=== PATIENT | female | born 1985 | race Caucasian/White ===

== ENCOUNTER 2022-12-29 05:56 | Emergency (ER) | payer OTHER, SELFPAY ==
--- NOTE | 2022-12-29 | ECG_ITS ---
Test Reason : chest pain Blood Pressure : / mmHG Vent. Rate : 084 BPM Atrial Rate : 084 BPM P-R Int : 152 ms QRS Dur : 088 ms QT Int : 384 ms P-R-T Axes : 063 029 026 degrees QTc Int : 453 ms Normal sinus rhythm Nonspecific T wave abnormality Borderline ECG No previous ECGs available Referred By: Generic ED Physician Electronically Signed By:JUANCHO OROZCO MD
[2022-12-29 05:57] VITALS: BP 128/70; PULSE 83; RESP 18; TEMP 36.3; O2SAT 98; BMI 26.6
[2022-12-29 06:23] LABS: MANUAL DIFF FLAG NO
[2022-12-29 06:24] LABS: Basophils Absolute Auto 0.1 X10*3/uL (0.0-0.2); Basophils Percent Auto 0.5 % (0-2); Eosinophils Absolute Auto 0.2 X10*3/uL (0.0-0.4); Eosinophils Percent Auto 1.8 % (0-4); Hematocrit 37.8 % (37.0-47.0); Hemoglobin 12.2 g/dl (12.0-16.0); Imm Gran Abs Auto 0.03 X10*3/uL (0.00-0.03); Imm Gran Pct Auto 0.3 % (0.0-0.4); Lymphocytes Absolute Auto 2.5 X10*3/uL (1.2-4.9); Lymphocytes Percent Auto 25.6 % (20-40); Mean Corpuscular HGB Conc 32.3 g/dl (31.0-35.0); Mean Corpuscular Volume 80.4 fL (80.0-98.0); Mean Platelet Volume 9.2 fL (9.4-12.3); Monocytes Absolute Auto 0.5 X10*3/uL (0.1-1.2); Monocytes Percent Auto 5.4 % (2-11); Neutrophils Absolute Auto 6.4 x10*3/uL (2.0-8.3); Neutrophils Percent Auto 66.4 % (45-73); Platelet Count 349 X10*3/uL (160-400); Red Cell Distribution Width 12.6 % (11.0-16.0); White Blood Count 9.6 X10*3/uL (4.8-10.8)
[2022-12-29 06:39] LABS: Alanine Aminotransferase 28 U/L (0-31); Albumin Level 4.5 g/dL (3.5-5.0); Alkaline Phosphatase 79 U/L (39-117); Anion Gap 14 (12-20); Aspartate Amino Transferase 21 U/L (5-31); Bilirubin Total 0.2 mg/dL (0.0-1.0); Blood Urea Nitrogen 8 mg/dL (9-16); Calcium 9.1 mg/dL (8.4-10.2); Carbon Dioxide 24 mmol/L (22-29); Chloride 105 mmol/L (96-108); Creatinine Clr Calc Pharmacy 99.7; Estimated Glomerular Filt Rate > 60; Glucose Random 104 mg/dL (60-115); Potassium 3.9 mmol/L (3.3-5.1); Sodium 139 mmol/L (135-145); Total Protein 7.4 g/dL (6.5-8.0)
--- NOTE | 2022-12-29 08:56 | ED_ITS ---
HPI - General Adult General Chief complaint: Dizziness Stated complaint: possible chemical exposure at work Time Seen by Provider: 12/29/22 08:56 Source: patient Mode of arrival: ambulatory Limitations: no limitations History of Present Illness HPI narrative: 37 year old female with no significant pmhx, presents to the ED with complaint of headache, dizziness, nausea w/o vomiting, and chest pain after smelling gasoline while at work [employer]. 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 Was not wearing PPE. She was in this area for approximately 20 minutes and began feeling dizzy, developed a TENA, became nauseous and started to have chest pain worse with deep inspiration. She was escorted out of the building by management. There were no other employees that had these symptoms. She only endorses mild chest pain with deep breathing and nausea at present. All other symptoms have resolved. Denies fever, chills, vision changes, SOB, vomiting, abdominal pain, diarrhea, constipation. Related Data Previous Rx's Medication Instructions Recorded ondansetron 4 mg disintegrating 4 mg PO DAILY PRN nausea and 12/29/22 tablet vomiting 5 days #10 tabs Allergies Allergy/AdvReac Type Severity Reaction Status Date / Time No Known Allergies Allergy Verified 12/29/22 06:10 Review of Systems 2 Review of Systems: Constitutional: No fever, chills, fatigue, night sweats, weight changes ENT/Mouth: No ear pain, hearing loss, nasal congestion, sinus pain, rhinorrhea, sore throat Eyes: No eye pain, swelling, redness, vision changes, discharge Cardio: + chest pain, No palpitations, LAGOS, orthopnea, peripheral edema Pulm: No SOB, cough, sputum, wheezing, dyspnea, hemoptysis GI: + nausea, No vomiting, hematemesis, abdominal pain, diarrhea, constipation, hematochezia, melena : No irregular bleeding, dysuria, frequency, urgency, hesitancy, hematuria, flank pain, urinary flow changes, urinary incontinence or retention MSK: No back pain, neck pain, joint pain, myalgias Skin: No lesions, rashes Neuro: No weakness, numbness, paresthesias, LOC, dizziness, headache All other systems reviewed and are negative. [facility] Past Medical History Attestation statement: The following information was validated with the patient. Source: old records reviewed and nursing notes reviewed Social History Social History Alcohol intake: never Use of substances other than those prescribed or required for medical reasons: No Advance Directives: No Advance Directives Information Provided: No Physical Exam ED Vital Signs: Vital Signs - 24 hr 12/29/22 05:57 12/29/22 10:46 Temperature 97.4 F 98 F Pulse Rate 83 78 Respiratory Rate 18 18 Blood Pressure 128/70 Pulse Oximetry 98 98 Oxygen Delivery Method Room Air Room Air BMI result Body Mass Index 26.6 Vital signs are stable. Const General: cooperative, healthy appearing, comfortable, no acute distress, alert and awake Orientation/consciousness: patient oriented x3 Limitations: no limitations HENMT Head: Yes normal to inspection, Yes normocephalic and Yes atraumatic Ears: hearing grossly normal bilaterally General nose exam: Normal external nose present Face and sinus: Yes normal facial exam Mouth: Normal oral and palatal mucosa present and moist mucous membranes Throat: Yes posterior oropharynx normal, Yes tonsils normal and Yes uvula midline Eyes General: appearance normal, both eyes and all related structures Conjunctivae: conjunctivae normal Sclerae: sclerae normal Pupils: Equal, round and reactive pupils present EOM: EOMs intact bilaterally Neck Neck: Yes normal visual inspection, Yes no lymphadenopathy and Yes no meningeal signs Chest Chest palpation & inspection: normal inspection of the chest, normal palpation of entire chest wall, no crepitus and no tenderness Resp Effort & Inspection: normal respiratory effort, able to speak in complete sentences, no use of accessory muscles and symmetric chest movement Auscultation: clear to auscultation bilaterally, no crackles, no rales, no rhonchi and no wheezes Cardio Jugular venous distension: no JVD Rate: regular rate Rhythm: regular rhythm Peripheral pulses: radial pulses present, posterior tibial pulses present and dorsalis pedis present GI Inspection: Yes normal to inspection Palpation (GI): Soft to palpation, nontender, no guarding and No Rebound tenderness present Skin General skin exam: no rashes or lesions noted Neuro Other: Normal [id number]-op-fxyc, orke-[id number]-bzgh, rapid movements of upper extremities. General: patient oriented x3, gait normal, moves all extremities and no meningeal signs Cranial nerves: Yes CN's II-XII intact bilaterally and Yes Equal, round and reactive pupils present Extrem General: Yes normal to inspection, Yes full ROM and Yes no clubbing, cyanosis or edema Course Course Course Narrative: 958-- CBC without leukocytosis or anemia. Chemistry without acute electrolyte abnormality requiring intervention. Carboxyhemoglobin wnl. Venous blood gas only notable for mildly elevated bicarb to 29, otherwise WNL. EKG showing normal sinus rhythm with a rate of 84 beats per minute, QT 384, QTC 453, no acute ischemic changes. > Patient's workup is within normal limits. As chest pain is worse with inspiration, symptoms are consistent with pleuritis secondary to possible inhalation of carbon monoxide. Patient advised to alternate ibuprofen and Tylenol for chest discomfort/pain and to help with inflammation. Will send Zofran to patient's pharmacy to help with nausea. She is currently tolerating crackers in ED. Discussed strict return precautions. All questions answered at this time. Patient agreeable with disposition and stable for discharge. Medications Administered Discontinued Medications Generic Name Dose Route Start Last Admin Trade Name Freq PRN Reason Stop Dose Admin Ondansetron HCl 4 mg 12/29/22 09:06 12/29/22 09:51 Ondansetron Odt 4 Mg Tab.Rapdis TRANSLINGU 12/29/22 09:07 4 mg ONCE ONE Administration Medical Decision Making Medical Decision Making [facility] Narrative: 37 year old female with no significant pmhx, presents to the ED with complaint of headache, dizziness, nausea without vomiting, and chest pain after smelling gasoline while at work [employer]. Patient is nontoxic appearing and in NAD. RRR. Lungs are CTA bilaterally. No chest wall tenderness to palpation. No skin color changes. [place], moist oral mucous membranes. Exam nonfocal. Cerebellum intact. Clinical concern for carbon monoxide poisoning, methemoglobinemia, environmental exposure. Lower suspicion for viral syndrome, URI. Concern for pleuritis vs msk sprain/strain. Unlikely arrhythmia, ACS, PE. Presentation not consistent with CVA/TIA. Unlikely cerebellar stroke. Plan at this time is basic labs, EKG, re- evaluation. Differential Diagnosis Differential Diagnoses: The differential diagnosis associated with the presentation includes As above. Admission/Observation Not indicated. Lab Data [facility] Lab Attestation statement: I reviewed the patient's lab results. As above. 12/29/22 06:20 12/29/22 06:20 Labs: Lab Results 12/29/22 12/29/22 12/29/22 Range/Units 06:20 09:36 09:50 WBC 9.6 (4.8-10.8) X10*3/uL RBC 4.70 (4.20-5.50) X10*6/uL Hgb 12.2 (12.0-16.0) g/dl Hct 37.8 (37.0-47.0) % MCV 80.4 (80.0-98.0) fL MCH 26.0 L (27.0-33.0) pg MCHC 32.3 (31.0-35.0) g/dl RDW 12.6 (11.0-16.0) % Plt Count 349 (160-400) X10*3/uL MPV 9.2 L (9.4-12.3) fL Immature Gran % (Auto) 0.3 (0.0-0.4) % Neut % (Auto) 66.4 (45-73) % Lymph % (Auto) 25.6 (20-40) % [place] % (Auto) 5.4 (2-11) % Eos % (Auto) 1.8 (0-4) % Baso % (Auto) 0.5 (0-2) % Lymph # (Auto) 2.5 (1.2-4.9) X10*3/uL [place] # (Auto) 0.5 (0.1-1.2) X10*3/uL Eos # (Auto) 0.2 (0.0-0.4) X10*3/uL Baso # (Auto) 0.1 (0.0-0.2) X10*3/uL Abs Immat Gran (auto) 0.03 (0.00-0.03) X10*3/uL Absolute Neuts (auto) 6.4 (2.0-8.3) x10*3/uL Absolute Nucleated RBC 0.000 (0.0-0.012) X10*3/uL Nucleated RBC % (auto) 0.0 (0.0-0.2) /100WBC VBG pH 7.38 (7.32-7.43) VBG pCO2 48 mmHg VBG pO2 30 mmHg VBG HCO3 29 H (22-26) mmol/L VBG O2 Saturation 38.0 % VBG Base Excess 3.8 mmol/L Carboxyhemoglobin % 1.5 % Sodium 139 (135-145) mmol/L Potassium 3.9 (3.3-5.1) mmol/L Chloride 105 (96-108) mmol/L Carbon Dioxide 24 (22-29) mmol/L Anion Gap 14 (12-20) BUN 8 L (9-16) mg/dL Creatinine 0.64 (0.5-1.4) mg/dL Estim Creat Clear Calc 99.7 Estimated GFR > 60 Random Glucose 104 (60-115) mg/dL Calcium 9.1 (8.4-10.2) mg/dL Total Bilirubin 0.2 (0.0-1.0) mg/dL AST 21 (5-31) U/L ALT 28 (0-31) U/L Alkaline Phosphatase 79 (39-117) U/L Total Protein 7.4 (6.5-8.0) g/dL Albumin 4.5 (3.5-5.0) g/dL Independent Interpretation I performed an independent interpretation of an: EKG Interpretation: EKG with normal sinus rhythm with a rate of 84 beats per minute, QT 384, QTC 453, no acute ischemic changes. External Record Review External record reviewed: Inpatient record Prescription Management I considered prescription management with: Pain Medication and Other (antiemetic) Social Determinants Patient?s care significantly limited by Social Determinants of Health including: Other Social Determinant of Health Critical Care Time Critical Care Time Critical Care Time: No Discharge Plan Discharge Clinical Impression: Pleuritis, Chemical exposure Patient Disposition: Home, Self-Care Instructions: Pleurisy (ED), Contact Precautions (ED) Additional Instructions: Your labs today were reassuring. Your carbon monoxide levels are normal. Your EKG was normal. Your symptoms are consistent with pleuritis-- inflammation of the lung lining secondary to breathing in a chemical. You were given Zofran in the ED today for nausea. This will be sent to your pharmacy. Take this as needed for nausea. Take ibuprofen over the next couple of days to help with your chest discomfort. Follow-up with your primary care provider as needed. Return to the ED if your symptoms persist or worsen. In the case of an emergency call 911. Carol an?ana de javi fueron tranquilizadores. Tus niveles de mon?xido de carbono son normales. Roberts electrocardiograma fue normal. Carol s?ntomas son consistentes con la pleuritis: inflamaci?n del revestimiento del pulm?n secundaria a la inhalaci?n de royce sustancia qu?urbano. Le dieron Zofran en el servicio de urgencias hoy para las n?useas. [place] se enviar? a roberts farmacia. T?grimes seg?n sea necesario para las n?useas. [place] ibuprofeno grant los pr?ximos d?as para aliviar el malestar en el pecho. [place]abe[place] un seguimiento con roberts proveedor de atenci?n primaria seg?n sea necesario. Regrese al servicio de urgencias si carol s?ntomas persisten o empeoran. En ramon de emergencia llame al 911. Prescriptions: New ondansetron 4 mg tablet,disintegrating 4 mg PO DAILY PRN (Reason: nausea and vomiting) 5 Days Qty: 10 0RF Referrals: Physician,Unknown J [Primary Care Provider] - Stand Alone Forms: Work/School Release Interventions: ED Discharge Assessment Last Done: 12/29/22 10:59 Discharge Date/Time: 12/29/22 10:59
[2022-12-29 09:42] LABS: VBG Base Excess 3.8 mmol/L; VBG HCO3 29 mmol/L (22-26); VBG pCO2 48 mmHg; VBG pH 7.38 (7.32-7.43); VBG pO2 30 mmHg
[2022-12-29] MEDS: Ondansetron ODT 4 MG TAB.RAPDIS TRANSLINGU (09:51)
[2022-12-29 10:04] LABS: Carbon Monoxide Refer to POC result
[2022-12-29 10:28] LABS: Carbon Monoxide POC 1.5 %
[2022-12-29 10:46] VITALS: PULSE 78; RESP 18; TEMP 36.6; O2SAT 98
== END 2022-12-29 10:59 | disposition home or self-care (01) ==
PROVIDERS: Physician Assistant Medical; Emergency Provider Emergency Medicine
DX: R09.1 Pleurisy (principal); R42 Dizziness and giddiness; R51.9 Headache, unspecified; R07.89 Other chest pain; Z79.899 Other long term (current) drug therapy
CPT/HCPCS: 36415; 80053; 82375; 82803; 85025; 93005; 99283; 99285

== ENCOUNTER 2023-05-30 13:21 | Emergency (ER) | payer OTHER, SELFPAY ==
--- NOTE | ~2023-05-30 | US_ITS ---
EXAMINATION: US PELVIS CLINICAL INFORMATION: Vaginal bleeding abdominal pain, negative hCG. LMP 05/01/2023. COMPARISON: Pelvic ultrasound 07/20/2007. TECHNIQUE: Ultrasound of the pelvis is performed using both transabdominal and transvaginal transducers along with Doppler. Transvaginal imaging is performed due to inadequate visualization transabdominally. FINDINGS: Anteverted anteflexed uterus measuring 8.7 x 4.1 x 5 cm. No uterine lesion. The endometrium measures 0.8 cm is in thickness without focal abnormality. Small cysts as well as calcifications in the cervix. Ovaries are normal in morphology with preserved flow at the moment of this examination. The right ovary measures 2.1 x 1.4 x 1.1 cm, 1.7 mL. The left ovary measures 1.9 x 1 x 1.1 cm, 1.1 mL. No adnexal mass. No free fluid. US/US pelvic and transvaginal IMPRESSION: Small simple appearing cysts as well as calcifications in the cervix, nonspecific could be sequela of cystic cervicitis. Recommend correlation with direct visualization.
[2023-05-30 13:35] VITALS: BP 147/79; PULSE 90; RESP 16; TEMP 36.4; O2SAT 98; BMI 23.3
--- NOTE | 2023-05-30 13:45 | ED.ABDPAIN ---
HPI - Abdominal Pain General Chief Complaint: Abdominal Pain Stated Complaint: Abd Pain Vag Bleed Time Seen by Provider: 05/30/23 20:53 Source: patient Mode of arrival: ambulatory Limitations: no limitations History of Present Illness HPI narrative: Patient A3 says that she is 4 weeks as last month when she had. Lasted only for 4 days and been testing urine which is coming positive for has a feeling of breast tenderness today she had vaginal bleeding with blood clot came out . Patient has not seen any ObG yet Related Data Previous Rx's Medication Instructions Recorded ondansetron 4 mg disintegrating 4 mg PO DAILY PRN nausea and 12/29/22 tablet vomiting 5 days #10 tabs Allergies Allergy/AdvReac Type Severity Reaction Status Date / Time No Known Allergies Allergy Verified 12/29/22 06:10 Review of Systems Review of Systems Yes all other systems are reviewed and are negative PENDING SALE TO [facility] Social History Social History Alcohol intake: never Advance Directives: No Advance Directives Information Provided: No Physical Exam ED Vital Signs: Vital Signs - 24 hr 05/30/23 13:35 05/30/23 17:11 05/30/23 21:08 Temperature 97.6 F 0 F L Pulse Rate 90 109 H 0 L Respiratory Rate 16 16 0 L Blood Pressure 147/79 H 127/88 0/0 L Pulse Oximetry 98 100 0 L Oxygen Delivery Method Room Air Room Air BMI result Body Mass Index 23.3 Appearance: Alert. Oriented X3. No acute distress. Eyes: No pallor or icterus ENT: Pharynx normal. Oral Mucosa moist Neck: Normal inspection. Neck supple. CVS: Normal heart rate and rhythm. Pulses normal. Respiratory: No respiratory distress. Equal air entry bilateral, Abdomen: Soft and nontender. Bowel sounds are present, no mass palpable, no CVA tenderness Skin: Skin warm and dry. Normal skin color. Normal skin turgor. Extremities: No lower extremity edema. No calf tenderness Neuro: Oriented X 3. Course Course Course Narrative: This is a rapid medical exam: Additional HPI, ROS, PE not included below will be deferred to primary provider. Woke this morning with left sided abdominal pain and vaginal bleeding. States that she passed clots. 5th with same man Medical Decision Making Medical Decision Making MDM Narrative: Patient hCG level is negative likely has dysfunctional uterine bleed not advised to follow-up with [employer] Lab Data MDM Lab Attestation statement: I reviewed the patient's lab results. 05/30/23 14:08 05/30/23 14:08 Labs: Lab Results 05/30/23 Range/Units 14:08 WBC 11.2 H (4.8-10.8) X10*3/uL RBC 5.03 (4.20-5.50) X10*6/uL Hgb 13.3 (12.0-16.0) g/dl Hct 40.6 (37.0-47.0) % MCV 80.7 (80.0-98.0) fL MCH 26.4 L (27.0-33.0) pg MCHC 32.8 (31.0-35.0) g/dl RDW 13.0 (11.0-16.0) % Plt Count 375 (160-400) X10*3/uL MPV 8.8 L (9.4-12.3) fL Immature Gran % (Auto) 0.3 (0.0-0.4) % Neut % (Auto) 71.4 (45-73) % Lymph % (Auto) 20.3 (20-40) % [place] % (Auto) 5.7 (2-11) % Eos % (Auto) 1.9 (0-4) % Baso % (Auto) 0.4 (0-2) % Lymph # (Auto) 2.3 (1.2-4.9) X10*3/uL [place] # (Auto) 0.6 (0.1-1.2) X10*3/uL Eos # (Auto) 0.2 (0.0-0.4) X10*3/uL Baso # (Auto) 0.1 (0.0-0.2) X10*3/uL Abs Immat Gran (auto) 0.03 (0.00-0.03) X10*3/uL Absolute Neuts (auto) 8.0 (2.0-8.3) x10*3/uL Absolute Nucleated RBC 0.000 (0.0-0.012) X10*3/uL Nucleated RBC % (auto) 0.0 (0.0-0.2) /100WBC Sodium 140 (135-145) mmol/L Potassium 3.9 (3.3-5.1) mmol/L Chloride 104 (96-108) mmol/L Carbon Dioxide 25 (22-29) mmol/L Anion Gap 15 (12-20) BUN 9 (9-16) mg/dL Creatinine 0.76 (0.5-1.4) mg/dL Estim Creat Clear Calc 103.2 Estimated GFR > 60 Random Glucose 111 (60-115) mg/dL Calcium 9.7 D (8.4-10.2) mg/dL Total Bilirubin 0.2 (0.0-1.0) mg/dL Direct Bilirubin < 0.2 (0.0-0.5) mg/dL AST 15 (5-31) U/L ALT 17 (0-31) U/L Alkaline Phosphatase 87 (39-117) U/L Total Protein 7.8 (6.5-8.0) g/dL Albumin 4.4 (3.5-5.0) g/dL Beta HCG, Quant < 2 mIU/mL Blood Type O Positive Independent Interpretation I performed an independent interpretation of an: Ultrasound Interpretation: US/US pelvic and transvaginal IMPRESSION: Small simple appearing cysts as well as calcifications in the cervix, nonspecific could be sequela of cystic cervicitis. Recommend correlation with direct visualization. Radiology Impression Discussion of test interpretation with radiology: I have reviewed the radiologist's reading. Discharge Plan Discharge Clinical Impression: Dysfunctional uterine bleeding Patient Disposition: Home, Self-Care Instructions: Dysfunctional Uterine Bleeding (ED) Additional Instructions: Follow with technical support assistant as advised for further evaluate Prescriptions: No Action ondansetron 4 mg tablet,disintegrating 4 mg PO DAILY PRN (Reason: nausea and vomiting) 5 Days Qty: 10 0RF Referrals: Fransico Dugan MD [Physician] - 2 weeks Interventions: ED Discharge Assessment Last Done: 05/30/23 21:08 Discharge Date/Time: 05/30/23 21:09 Print Language: French
[2023-05-30 14:14] LABS: MANUAL DIFF FLAG NO
[2023-05-30 14:18] LABS: Basophils Absolute Auto 0.1 X10*3/uL (0.0-0.2); Basophils Percent Auto 0.4 % (0-2); Eosinophils Absolute Auto 0.2 X10*3/uL (0.0-0.4); Eosinophils Percent Auto 1.9 % (0-4); Hematocrit 40.6 % (37.0-47.0); Hemoglobin 13.3 g/dl (12.0-16.0); Imm Gran Abs Auto 0.03 X10*3/uL (0.00-0.03); Imm Gran Pct Auto 0.3 % (0.0-0.4); Lymphocytes Absolute Auto 2.3 X10*3/uL (1.2-4.9); Lymphocytes Percent Auto 20.3 % (20-40); Mean Corpuscular HGB Conc 32.8 g/dl (31.0-35.0); Mean Corpuscular Hemoglobin 26.4 pg (27.0-33.0); Mean Corpuscular Volume 80.7 fL (80.0-98.0); Mean Platelet Volume 8.8 fL (9.4-12.3); Monocytes Absolute Auto 0.6 X10*3/uL (0.1-1.2); Monocytes Percent Auto 5.7 % (2-11); Neutrophils Percent Auto 71.4 % (45-73); Platelet Count 375 X10*3/uL (160-400); Red Blood Count 5.03 X10*6/uL (4.20-5.50); White Blood Count 11.2 X10*3/uL (4.8-10.8)
[2023-05-30 14:36] LABS: Alanine Aminotransferase 17 U/L (0-31); Albumin Level 4.4 g/dL (3.5-5.0); Alkaline Phosphatase 87 U/L (39-117); Anion Gap 15 (12-20); Aspartate Amino Transferase 15 U/L (5-31); Bilirubin Direct < 0.2 mg/dL (0.0-0.5); Bilirubin Total 0.2 mg/dL (0.0-1.0); Blood Urea Nitrogen 9 mg/dL (9-16); Calcium 9.7 mg/dL (8.4-10.2); Carbon Dioxide 25 mmol/L (22-29); Chloride 104 mmol/L (96-108); Creatinine Clr Calc Pharmacy 103.2; Estimated Glomerular Filt Rate > 60; Glucose Random 111 mg/dL (60-115); HCG Quantitative < 2 mIU/mL; Potassium 3.9 mmol/L (3.3-5.1); Sodium 140 mmol/L (135-145); Total Protein 7.8 g/dL (6.5-8.0)
[2023-05-30 17:11] VITALS: BP 127/88; PULSE 109; RESP 16; O2SAT 100
[2023-05-30 21:08] VITALS: BP 0/0; PULSE 0; RESP 0; TEMP -17.7; TEMP 0; O2SAT 0
== END 2023-05-30 21:09 | disposition home or self-care (01) ==
PROVIDERS: Nurse Practitioner Family; Emergency Provider Internal Medicine
DX: N93.8 Other specified abnormal uterine and vaginal bleeding (principal)
CPT/HCPCS: 36415; 76830; 76856; 80053; 80076; 82248; 84702; 85025; 86900; 86901; 99282; 99284

== ENCOUNTER 2023-09-01 20:12 | Emergency (ER) | payer OTHER, SELFPAY ==
--- NOTE | ~2023-09-01 | US_ITS ---
EXAMINATION: US PELVIS CLINICAL INFORMATION: Suprapubic pain. Scan vaginal bleeding. Last menstrual period: 07/27/2023 COMPARISON: 05/30/2023 TECHNIQUE: Ultrasound of the pelvis is performed using both transabdominal and transvaginal transducers along with spectral and color Doppler. Transvaginal imaging is performed due to inadequate visualization transabdominally. FINDINGS: Uterus: The uterus is anteverted and measures 7.3 x 4.7 x 5.8 cm. The double wall endometrial thickness is 12 mm. The uterus is smooth in contour and has normal myometrial echogenicity. No visible fibroid. Nabothian cysts are noted. Echogenic focus in the region of the cervix may correspond to a calcification. Adnexa: Both ovaries are visualized. There is normal color flow to the adnexa. There is no ovarian torsion. Normal venous and arterial waveforms in the ovaries on spectral Doppler. Trace intraperitoneal free fluid. Right ovary measures 2.3 x 1.2 x 1.5 cm. No cysts or lesions. Left ovary measures 2.8 x 1.7 x 1.7 cm cm. No cysts or lesions. US/US pelvic and transvaginal IMPRESSION: No acute intrapelvic findings. Previously seen nabothian cysts and possible calcifications in the region of the cervix are unchanged as compared to prior.
[2023-09-01 20:14] VITALS: BP 142/92; PULSE 98; RESP 18; TEMP 36.5; O2SAT 98; BMI 30.9
--- NOTE | 2023-09-01 20:14 | ED_ITS ---
HPI - Abdominal Pain General Chief Complaint: Abdominal Pain Stated Complaint: lower abdominal pain, missed period Time Seen by Provider: 09/01/23 22:48 Source: patient Mode of arrival: ambulatory Limitations: no limitations History of Present Illness ED Provider: Angie Hernandez PA-C HPI narrative: Patient is a 38 year old assigned female at with no reported medical history presenting to the emergency department today with abdominal pain, nausea, vomiting, and very light vaginal bleeding. Patient states that she is currently trying to get and she is concerned that she is and miscarrying. Patient denies any dizziness, lightheadedness, fever, chills, blurry vision, double vision, loss of vision, chest pain, difficulty breathing, shortness of breath, back pain, night sweats, pain with urination, increased urinary frequency, increased urinary urgency, syncope or a near syncopal episode, recent trauma or falls, bowel incontinence, bladder incontinence, or any other complaints at this time. Exacerbating factors: nothing Relieving factors: nothing Associated symptoms: nausea and vomiting Related Data Previous Rx's ?Medication ?Instructions ?Recorded ondansetron 4 mg disintegrating 4 mg PO DAILY PRN nausea and 12/29/22 tablet vomiting 5 days #10 tabs Allergies Allergy/AdvReac Type Severity Reaction Status Date / Time No Known Allergies Allergy Verified 09/01/23 20:17 Review of Systems Constitutional: Reports no additional constitutional complaints, Denies chills, Denies fever(s) and Denies night sweats Eyes: Reports no additional eye complaints, Denies blurry vision, Denies change in vision, Denies diplopia, Denies eye discharge, Denies loss of vision and Denies eye pain Denies dizziness Cardiovascular: Reports no additional cardiovascular complaints, Denies chest pain, Denies lightheadedness, Denies Loss of Consciousness and Denies dyspnea Respiratory: Reports no additional respiratory complaints and Denies dyspnea Gastrointestinal: Reports no additional gastrointestinal complaints, Reports abdominal pain, Denies melena, Denies hematochezia, Denies change in bowel habits, Denies change in stool character, Reports nausea and Reports vomiting Genitourinary: Denies urinary frequency, Denies dysuria, Denies urinary incontinence, Denies urinary hesitancy and Denies urinary urgency Comments: light vaginal bleeding Musculoskeletal: Reports no additional musculoskeletal complaints, Denies numbness and Denies tingling Denies dizziness, Denies loss of vision, Denies numbness and Denies tingling Psychiatric: Reports no additional psychiatric complaints Endocrine: Reports no additional endocrine complaints Hematologic/Lymphatic: Reports no additional hematologic/lymphatic complaints Allergic/Immunologic: Reports no additional allergic/immunologic complaints PMFSH Past Medical History Attestation statement: The following information was validated with the patient. Source: old records reviewed and nursing notes reviewed Social History Social History Alcohol intake: never Advance Directives: No Advance Directives Information Provided: No Do you have a plan to hurt others: No Plan Physical Exam ED Vital Signs: Vital Signs - 24 hr 09/01/23 20:14 09/01/23 23:19 09/02/23 01:46 Temperature 97.7 F 98.3 F 98.3 F Pulse Rate 98 81 81 Respiratory Rate 18 16 16 Blood Pressure 142/92 H 112/75 112/75 Pulse Oximetry 98 97 97 Oxygen Delivery Method Room Air BMI result Body Mass Index 30.9 Const General: cooperative, no acute distress, alert and awake Nutritional Appearance: well nourished Orientation/consciousness: patient oriented x3 Limitations: no limitations HENMT Head: Yes normal to inspection and Yes atraumatic Ears: hearing grossly normal bilaterally and external ears normal General nose exam: Normal external nose present, no nasal discharge noted and no epistaxis Face and sinus: Yes normal facial exam, No abrasion and No laceration Mouth: Normal oral and palatal mucosa present, no drooling and no muffled voice Eyes General: appearance normal, both eyes and all related structures Periorbital: periorbital findings normal Eyelids: Yes eyelids normal Conjunctivae: conjunctivae normal Pupils: Equal, round and reactive pupils present EOM: EOMs intact bilaterally Neck Neck: Yes normal visual inspection, Yes full ROM and Yes no lymphadenopathy Chest Chest palpation & inspection: normal inspection of the chest Resp Effort & Inspection: normal respiratory effort and able to speak in complete sentences GI Inspection: Yes normal to inspection Palpation (GI): Soft to palpation, not firm, Tenderness to palpation present (GI) periumbilically, no guarding and not rigid Neuro General: patient oriented x3 and moves all extremities Cranial nerves: Yes Equal, round and reactive pupils present Cognition (Neuro): normal cognition Motor exam (neuro): 5/5 motor strength present throughout Sensory Exam: Normal double simultaneous stimulation for sensation Coordination: [id number] test normal Extrem General: Yes normal to inspection, Yes full ROM and Yes capillary refill normal Psych Appearance: grossly normal Mental Status: mental status grossly normal Affect: normal affect Attitude: cooperative Thought process: Normal thought process present Thought content: Normal thought content present Insight: Good insight present (Psych) Course Course Course Narrative: This is a Rapid Medical Exam performed in triage by Akosua Dc PA-C. Full HPI, ROS and PE to be performed by primary ED provider. 38 year-old F w/no sig PMHx presenting to the ED c/o lower abdominal pain [id number] w/ missed period (9 days late) & vaginal bleeding pink d/c when she went into shower, also reports nausea & vomiting x2 weeks. took 2 home tests that were negative PE: abd soft w/lower ttp no rebound or guarding Plan: labs, UA Medical Decision Making Medical Decision Making [facility] Narrative: Patient is a 38 year old assigned female at with no reported medical history presenting to the emergency department today with lower abdominal pain and light spotting. Patient's physical exam was unremarkable. Patient's blood work was unremarkable. Patient's urine showed no acute process. Patient's pelvic US showed no acute process. I explained my physical exam findings as well as all test results to the patient. I answered all questions asked by the patient. I stressed the importance of the patient taking her medication as prescribed. I stressed the importance of the patient following up with her primary care provider. I stressed the importance of the patient returning to the emergency department immediately if her symptoms were to worsen or if she were to develop any dizziness, shortness of breath, difficulty breathing, chest pain, blurry vision, loss of vision, nausea, vomiting, abdominal pain, fever, chills, back pain, or any other complaints. Patient verbalized agreement and understanding with this treatment plan and discharge. Differential Diagnosis Differential Diagnoses: The differential diagnosis associated with the presentation includes Abdominal pain UTI Menstrual cycle Admission/Observation Consideration of admission/observation: Escalation of care including admission/observation considered Patient would have been admitted to the hospital had her work up had any findings where hospital admission was appropriate and her clinical presentation warranted hospital admission. Lab Data [facility] Lab Attestation statement: I reviewed the patient's lab results. My interpretation of these results are in the [facility] Rationale portion of this note. 09/01/23 20:42 09/01/23 20:43 Labs: Lab Results 09/01/23 09/01/23 Range/Units 20:42 20:43 WBC 11.7 H (4.8-10.8) X10*3/uL RBC 4.92 (4.20-5.50) X10*6/uL Hgb 13.0 (12.0-16.0) g/dl Hct 38.9 (37.0-47.0) % MCV 79.1 L (80.0-98.0) fL MCH 26.4 L (27.0-33.0) pg MCHC 33.4 (31.0-35.0) g/dl RDW 13.0 (11.0-16.0) % Plt Count 341 (160-400) X10*3/uL MPV 9.1 L (9.4-12.3) fL Immature Gran % (Auto) 0.2 (0.0-0.4) % Neut % (Auto) 60.3 (45-73) % Lymph % (Auto) 30.5 (20-40) % [place] % (Auto) 5.2 (2-11) % Eos % (Auto) 3.1 (0-4) % Baso % (Auto) 0.7 (0-2) % Lymph # (Auto) 3.6 (1.2-4.9) X10*3/uL [place] # (Auto) 0.6 (0.1-1.2) X10*3/uL Eos # (Auto) 0.4 (0.0-0.4) X10*3/uL Baso # (Auto) 0.1 (0.0-0.2) X10*3/uL Abs Immat Gran (auto) 0.02 (0.00-0.03) X10*3/uL Absolute Neuts (auto) 7.0 (2.0-8.3) x10*3/uL Absolute Nucleated RBC 0.000 (0.0-0.012) X10*3/uL Nucleated RBC % (auto) 0.0 (0.0-0.2) /100WBC Sodium 142 (135-145) mmol/L Potassium 4.0 (3.3-5.1) mmol/L Chloride 101 (96-108) mmol/L Carbon Dioxide 26 (22-29) mmol/L Anion Gap 19 (12-20) BUN 9 (9-16) mg/dL Creatinine 0.73 (0.5-1.4) mg/dL Estim Creat Clear Calc 93.2 Estimated GFR > 60 Random Glucose 87 (60-115) mg/dL Calcium 9.5 (8.4-10.2) mg/dL Magnesium 2.0 (1.6-2.6) mg/dL Total Bilirubin 0.2 (0.0-1.0) mg/dL Direct Bilirubin < 0.2 (0.0-0.5) mg/dL AST 19 (5-31) U/L ALT 18 (0-31) U/L Alkaline Phosphatase 91 (39-117) U/L Total Protein 8.0 (6.5-8.0) g/dL Albumin 4.4 (3.5-5.0) g/dL Lipase 34 (8-78) U/L Beta HCG, Quant < 2 mIU/mL Urine Color Yellow Urine Appearance Clear Urine pH 6.5 (5.0-9.0) Ur Specific [place] 1.010 (1.005-1.025) Urine Protein Negative (Neg-Trace) mg/dL Urine Glucose (UA) Negative (Negative) mg/dL Urine Ketones Negative (Negative) mg/dL Urine Blood Negative (Negative) Urine Nitrite Negative (Negative) Ur Leukocyte Esterase Negative (Negative) Urine Test NEGATIVE (NEGATIVE) Independent Interpretation I performed an independent interpretation of an: Ultrasound Interpretation: My interpretation is in agreement with the radiologist's impression of this imaging study. - EXAMINATION: US PELVIS CLINICAL INFORMATION: Suprapubic pain. Scan vaginal bleeding. Last menstrual period: 07/27/2023 COMPARISON: 05/30/2023 TECHNIQUE: Ultrasound of the pelvis is performed using both transabdominal and transvaginal transducers along with spectral and color Doppler. Transvaginal imaging is performed due to inadequate visualization transabdominally. FINDINGS: Uterus: The uterus is anteverted and measures 7.3 x 4.7 x 5.8 cm. The double wall endometrial thickness is 12 mm. The uterus is smooth in contour and has normal myometrial echogenicity. No visible fibroid. Nabothian cysts are noted. Echogenic focus in the region of the cervix may correspond to a calcification. Adnexa: Both ovaries are visualized. There is normal color flow to the adnexa. There is no ovarian torsion. Normal venous and arterial waveforms in the ovaries on spectral Doppler. Trace intraperitoneal free fluid. Right ovary measures 2.3 x 1.2 x 1.5 cm. No cysts or lesions. Left ovary measures 2.8 x 1.7 x 1.7 cm cm. No cysts or lesions. US/US pelvic and transvaginal IMPRESSION: No acute intrapelvic findings. Previously seen nabothian cysts and possible calcifications in the region of the cervix are unchanged as compared to prior. Dictated By: Yovanny Duron MD Signed By: Electronically signed by Yovanny Duron MD 09/02/23 0209 Medications Administered Discontinued Medications Generic Name Dose Route Start Last Admin Trade Name Carolyn PRN Reason Stop Dose Admin Ketorolac Tromethamine 15 mg 09/01/23 23:48 09/02/23 00:04 Ketorolac Tromethamine 15 Mg/Ml Vial IM 09/01/23 23:49 15 mg ONCE ONE Administration Ondansetron HCl 4 mg 09/01/23 23:48 09/02/23 00:04 Ondansetron Odt 4 Mg Tab.Rapdis TRANSLINGU 09/01/23 23:49 4 mg ONCE ONE Administration Discharge Plan Discharge Clinical Impression: Abdominal pain Patient Disposition: Home, Self-Care Instructions: Abdominal Pain (ED) Additional Instructions: Follow up with your primary care provider. Return to the emergency department immediately if your symptoms worsen or if you develop any dizziness, shortness of breath, difficulty breathing, chest pain, blurry vision, loss of vision, nausea, vomiting, abdominal pain, fever, chills, back pain, or any other complaints. Prescriptions: No Action ondansetron 4 mg tablet,disintegrating 4 mg PO DAILY PRN (Reason: nausea and vomiting) 5 Days Qty: 10 0RF Referrals: Jesi Umana MD [Primary Care Provider] - Stand Alone Forms: Work/School Release Interventions: ED Discharge Assessment Last Done: 09/02/23 01:46 Discharge Date/Time: 09/02/23 01:46 Print Language: Telugu
[2023-09-01 20:51] LABS: MANUAL DIFF FLAG NO
[2023-09-01 20:58] LABS: Basophils Absolute Auto 0.1 X10*3/uL (0.0-0.2); Basophils Percent Auto 0.7 % (0-2); Eosinophils Absolute Auto 0.4 X10*3/uL (0.0-0.4); Eosinophils Percent Auto 3.1 % (0-4); Hematocrit 38.9 % (37.0-47.0); Imm Gran Abs Auto 0.02 X10*3/uL (0.00-0.03); Imm Gran Pct Auto 0.2 % (0.0-0.4); Lymphocytes Absolute Auto 3.6 X10*3/uL (1.2-4.9); Lymphocytes Percent Auto 30.5 % (20-40); Mean Corpuscular HGB Conc 33.4 g/dl (31.0-35.0); Mean Corpuscular Hemoglobin 26.4 pg (27.0-33.0); Mean Corpuscular Volume 79.1 fL (80.0-98.0); Mean Platelet Volume 9.1 fL (9.4-12.3); Monocytes Absolute Auto 0.6 X10*3/uL (0.1-1.2); Monocytes Percent Auto 5.2 % (2-11); Neutrophils Percent Auto 60.3 % (45-73); Platelet Count 341 X10*3/uL (160-400); Red Blood Count 4.92 X10*6/uL (4.20-5.50); White Blood Count 11.7 X10*3/uL (4.8-10.8)
[2023-09-01 21:07] LABS: UPreg QC Valid YES; Urine Pregnancy NEGATIVE (NEGATIVE)
[2023-09-01 21:33] LABS: Alanine Aminotransferase 18 U/L (0-31); Albumin Level 4.4 g/dL (3.5-5.0); Alkaline Phosphatase 91 U/L (39-117); Anion Gap 19 (12-20); Aspartate Amino Transferase 19 U/L (5-31); Bilirubin Direct < 0.2 mg/dL (0.0-0.5); Bilirubin Total 0.2 mg/dL (0.0-1.0); Blood Urea Nitrogen 9 mg/dL (9-16); Calcium 9.5 mg/dL (8.4-10.2); Carbon Dioxide 26 mmol/L (22-29); Chloride 101 mmol/L (96-108); Creatinine Clr Calc Pharmacy 93.2; Estimated Glomerular Filt Rate > 60; Glucose Random 87 mg/dL (60-115); HCG Quantitative < 2 mIU/mL; Lipase 34 U/L (8-78); Sodium 142 mmol/L (135-145)
[2023-09-01 23:10] LABS: Appearance Urine Clear; Color Urine Yellow; Glucose Urine UA Negative (Negative); Leukocyte Esterase Urine Negative (Negative); Nitrite Urine Negative (Negative); PH 6.5 (5.0-9.0); Urine Blood Negative (Negative); Urine Ketones Negative (Negative); Urine Protein Negative (Neg-Trace)
[2023-09-01 23:19] VITALS: BP 112/75; PULSE 81; RESP 16; TEMP 36.8; O2SAT 97
--- NOTE | 2023-09-01 23:47 | PC.NURSE ---
1x attempt for iv access, unable to. pt refusing further attempts and states she will take meds po/IM. PA aware.
[2023-09-02] MEDS: Ketorolac Tromethamine 15 MG/ML VIAL IM (00:04)
[2023-09-02] MEDS: Ondansetron ODT 4 MG TAB.RAPDIS TRANSLINGU (00:04)
[2023-09-02 01:46] VITALS: BP 112/75; PULSE 81; RESP 16; TEMP 36.8; O2SAT 97
== END 2023-09-02 01:46 | disposition home or self-care (01) ==
PROVIDERS: Physician Assistant; Emergency Provider Internal Medicine; PCP Internal Medicine
DX: R10.30 Lower abdominal pain, unspecified (principal); R11.2 Nausea with vomiting, unspecified; R10.2 Pelvic and perineal pain; Z79.899 Other long term (current) drug therapy
CPT/HCPCS: 36415; 76830; 76856; 80048; 80076; 81003; 81025; 83690; 83735; 84702; 85025; 96372; 99283; 99284; J1885

== ENCOUNTER 2023-10-08 18:15 | Emergency (ER) | payer OTHER, SELFPAY ==
--- NOTE | ~2023-10-08 | US_ITS ---
EXAMINATION: US OBSTETRICAL ULTRASOUND CLINICAL INFORMATION: 45 week . Abdominal cramping. October 08, 2023. ECG level 143 COMPARISON: Pelvic ultrasound September 01, 2023 LMP: 09/01/2023. Gestational age by maternal dates is 5 weeks 2 days.. Estimated date of delivery by maternal dates is 06/07/2024. TECHNIQUE: Transabdominal and transvaginal pelvic ultrasound. FINDINGS: No intrauterine gestational sac. No fluid collections in the endometrial cavity. Endometrial stripe measures 1.1 cm. MATERNAL ADNEXA: The right maternal ovary measures 2.3 x 1.5 x 1.4 cm. The left maternal ovary measures 3.2 x 2.6 x 2.7 cm. 2.8 cm anechoic left ovarian cyst. Findings are overwhelmingly likely to represent a normal ovarian follicle. No followup imaging recommended. There is no significant maternal adnexal mass. No maternal pelvic ascites. US/US OB pelvic and transvaginal IMPRESSION: No acute abnormality of pelvis. No intrauterine gestation. Ectopic is not excluded. Consider serial follow-up beta hCG levels. Follow-up ultrasound in one to 2 weeks could be considered.
[2023-10-08 18:40] VITALS: BP 141/87; PULSE 113; RESP 16; TEMP 36.6; O2SAT 99; BMI 29.3
--- NOTE | 2023-10-08 18:41 | ED.ABDPAIN ---
HPI - Abdominal Pain General Chief Complaint: Abdominal Pain Stated Complaint: abd pain, Time Seen by Provider: 10/08/23 20:12 Source: patient Mode of arrival: ambulatory Limitations: no limitations History of Present Illness HPI narrative: Patient is a 38-year-old female with LMP 09/01/2023 with estimated due date June 07 2024, following with [facility] reporting that she is currently but having diffuse lower abdominal cramping. She denies any abnormal vaginal bleeding or discharge. She denies any pelvic cramping. She states that she is following with her OB office and has had down trending hCG levels; states 2 days ago serum hCG was 194, today was 146. She denies associated nausea, vomiting, back pain, dysuria, urinary frequency/urgency/hesitancy. Denies concern for sexually transmitted infections. Related Data Previous Rx's ?Medication ?Instructions ?Recorded ondansetron 4 mg disintegrating 4 mg PO DAILY PRN nausea and 12/29/22 tablet vomiting 5 days #10 tabs Allergies Allergy/AdvReac Type Severity Reaction Status Date / Time No Known Allergies Allergy Verified 10/08/23 18:42 Review of Systems Review of Systems Yes all other systems are reviewed and are negative [facility] Past Medical History Attestation statement: The following information was validated with the patient. Source: old records reviewed Social History Social History Alcohol intake: never Advance Directives: No Advance Directives Information Provided: No Physical Exam ED Vital Signs: Vital Signs - 24 hr 10/08/23 18:40 10/08/23 20:48 10/08/23 22:34 Temperature 97.8 F 99.7 F 99.7 F Pulse Rate 113 H 108 H 108 H Respiratory Rate 16 18 18 Blood Pressure 141/87 H 120/78 120/78 Pulse Oximetry 99 99 99 Oxygen Delivery Method Room Air Room Air Room Air BMI result Body Mass Index 29.3 Appearance: Alert.?Oriented to person, place and time. No acute distress.?Normal affect. Eyes: Pupils equal, round and reactive to light.? ENT: Pharynx normal.?? Neck: Normal inspection.? Neck supple.?? CVS: Heart sounds normal. Normal heart rate and rhythm.? Pulses normal.?? Respiratory: No respiratory distress.? Lung sounds clear to auscultation bilaterally?? Abdomen: Soft and non-tender no rigidity. No guarding.. No CVA tenderness. Normoactive bowel sounds. Skin: Skin warm and dry.? Normal skin color.? ?? Extremities: No lower extremity edema.? Neuro: Moves all extremities spontaneously. Sensation intact bilaterally. Ambulates with normal steady gait. Course Course Course Narrative: This is a Rapid Medical Examination (RME) performed by Hema Jennings PA-C in triage. Full HPI, ROS, assessment and treatment plan per primary provider in the Main ED. 38 yo female, currently 4-5 wks , here for eval of abdominal cramping. LMP August 31. denies vaginal bleeding/ discharge. Patient was seen by her physician this morning and notes that her HCG was trending downward. + abd soft, ND/NT. Plan: labs, UA, ultrasound Medical Decision Making Medical Decision Making [facility] Narrative: Patient is a 38-year-old female with LMP 09/01/2023 with estimated due date June 07 2024, following with [facility] with diffuse lower abdominal cramping and downtrending hCG, no vaginal bleeding or discharge. Her abdominal examination is nonfocal, has diffuse tenderness but no rebound tenderness, no rigidity or guarding. Pelvic ultrasound was obtained and is without evidence of intrauterine , no adnexal masses seen however can not exclude ectopic. She states that she has an appointment with her OB tomorrow, she will call their office in the morning to let them know that she came to this emergency department and had an ultrasound obtained. I advised very close follow-up, as they will continue to trend her hCG and consider serial ultrasound imaging. We discussed strict return precautions. She declined internal pelvic examination, denied concerns for sexually transmitted infections and declined interest in any testing for vaginal infections. Differential Diagnosis Differential Diagnoses: The differential diagnosis associated with the presentation includes (Ectopic , intrauterine , spontaneous , ovarian cyst. Suspect less likely TOA/torsion) Admission/Observation Consideration of admission/observation: Escalation of care including admission/observation considered Lab Data [facility] Lab Attestation statement: I reviewed the patient's lab results. CBC reveals mild leukocytosis, no anemia or thrombocytopenia. No electrolyte derangement. No DEANDRE. Urinalysis without evidence of infection or microscopic hematuria. 10/08/23 19:04 07/31/24 19:04 Labs: Lab Results 10/08/23 10/08/23 Range/Units 19:04 21:00 WBC 11.6 H (4.8-10.8) X10*3/uL RBC 4.75 (4.20-5.50) X10*6/uL Hgb 12.7 (12.0-16.0) g/dl Hct 38.6 (37.0-47.0) % MCV 81.3 (80.0-98.0) fL MCH 26.7 L (27.0-33.0) pg MCHC 32.9 (31.0-35.0) g/dl RDW 13.3 (11.0-16.0) % Plt Count 356 (160-400) X10*3/uL MPV 9.0 L (9.4-12.3) fL Immature Gran % (Auto) 0.3 (0.0-0.4) % Neut % (Auto) 69.2 (45-73) % Lymph % (Auto) 23.3 (20-40) % [place] % (Auto) 4.7 (2-11) % Eos % (Auto) 2.0 (0-4) % Baso % (Auto) 0.5 (0-2) % Lymph # (Auto) 2.7 (1.2-4.9) X10*3/uL [place] # (Auto) 0.6 (0.1-1.2) X10*3/uL Eos # (Auto) 0.2 (0.0-0.4) X10*3/uL Baso # (Auto) 0.1 (0.0-0.2) X10*3/uL Abs Immat Gran (auto) 0.03 (0.00-0.03) X10*3/uL Absolute Neuts (auto) 8.0 (2.0-8.3) x10*3/uL Absolute Nucleated RBC 0.000 (0.0-0.012) X10*3/uL Nucleated RBC % (auto) 0.0 (0.0-0.2) /100WBC Sodium 138 (135-145) mmol/L Potassium 3.9 (3.3-5.1) mmol/L Chloride 105 (96-108) mmol/L Carbon Dioxide 25 (22-29) mmol/L Anion Gap 12 (12-20) BUN 9 (9-16) mg/dL Creatinine 0.64 (0.5-1.4) mg/dL Estim Creat Clear Calc 103.5 Estimated GFR > 60 Random Glucose 100 (60-115) mg/dL Calcium 9.8 (8.4-10.2) mg/dL Magnesium 2.1 (1.6-2.6) mg/dL Total Bilirubin 0.2 (0.0-1.0) mg/dL AST 18 (5-31) U/L ALT 18 (0-31) U/L Alkaline Phosphatase 84 (39-117) U/L Total Protein 7.8 (6.5-8.0) g/dL Albumin 4.5 (3.5-5.0) g/dL Lipase 33 (8-78) U/L Beta HCG, Quant 143 mIU/mL Urine Color Yellow Urine Appearance Clear Urine pH 5.5 (5.0-9.0) Ur Specific [place] 1.020 (1.005-1.025) Urine Protein Negative (Neg-Trace) mg/dL Urine Glucose (UA) Negative (Negative) mg/dL Urine Ketones Negative (Negative) mg/dL Urine Blood Negative (Negative) Urine Nitrite Negative (Negative) Ur Leukocyte Esterase Negative (Negative) Urine Test POSITIVE H (NEGATIVE) Radiology Impression Discussion of test interpretation with radiology: I have reviewed the radiologist's reading. Radiologist Impression: US/US OB pelvic and transvaginal IMPRESSION: No acute abnormality of pelvis. No intrauterine gestation. Ectopic is not excluded. Consider serial follow-up beta hCG levels. Follow-up ultrasound in one to 2 weeks could be considered. Discharge Plan Discharge Clinical Impression: Abdominal pain Patient Disposition: Home, Self-Care Instructions: Abdominal Pain in (ED) Additional Instructions: As discussed, it is very important that you contact your OB office first thing tomorrow morning to arrange for a follow-up appointment. They will continue to trend your hCG levels and repeat ultrasound. Your ultrasound today does not show evidence within the uterus. You may return back to emergency department any new or worsening symptoms or concerns US/US OB pelvic and transvaginal IMPRESSION: No acute abnormality of pelvis. No intrauterine gestation. Ectopic is not excluded. Consider serial follow-up beta hCG levels. Follow-up ultrasound in one to 2 weeks could be considered. Prescriptions: No Action ondansetron 4 mg tablet,disintegrating 4 mg PO DAILY PRN (Reason: nausea and vomiting) 5 Days Qty: 10 0RF Interventions: ED Discharge Assessment Last Done: 10/08/23 22:34 Discharge Date/Time: 10/08/23 22:34 Print Language: Citizen Of [place]
[2023-10-08 19:09] LABS: MANUAL DIFF FLAG NO
[2023-10-08 19:10] LABS: Basophils Absolute Auto 0.1 X10*3/uL (0.0-0.2); Basophils Percent Auto 0.5 % (0-2); Eosinophils Absolute Auto 0.2 X10*3/uL (0.0-0.4); Hematocrit 38.6 % (37.0-47.0); Hemoglobin 12.7 g/dl (12.0-16.0); Imm Gran Abs Auto 0.03 X10*3/uL (0.00-0.03); Imm Gran Pct Auto 0.3 % (0.0-0.4); Lymphocytes Absolute Auto 2.7 X10*3/uL (1.2-4.9); Lymphocytes Percent Auto 23.3 % (20-40); Mean Corpuscular HGB Conc 32.9 g/dl (31.0-35.0); Mean Corpuscular Hemoglobin 26.7 pg (27.0-33.0); Mean Corpuscular Volume 81.3 fL (80.0-98.0); Monocytes Absolute Auto 0.6 X10*3/uL (0.1-1.2); Monocytes Percent Auto 4.7 % (2-11); Neutrophils Percent Auto 69.2 % (45-73); Platelet Count 356 X10*3/uL (160-400); Red Blood Count 4.75 X10*6/uL (4.20-5.50); Red Cell Distribution Width 13.3 % (11.0-16.0); White Blood Count 11.6 X10*3/uL (4.8-10.8)
[2023-10-08 19:29] LABS: Alanine Aminotransferase 18 U/L (0-31); Albumin Level 4.5 g/dL (3.5-5.0); Alkaline Phosphatase 84 U/L (39-117); Anion Gap 12 (12-20); Aspartate Amino Transferase 18 U/L (5-31); Bilirubin Total 0.2 mg/dL (0.0-1.0); Blood Urea Nitrogen 9 mg/dL (9-16); Calcium 9.8 mg/dL (8.4-10.2); Carbon Dioxide 25 mmol/L (22-29); Chloride 105 mmol/L (96-108); Creatinine Clr Calc Pharmacy 103.5; Estimated Glomerular Filt Rate > 60; Glucose Random 100 mg/dL (60-115); Lipase 33 U/L (8-78); Magnesium 2.1 mg/dL (1.6-2.6); Potassium 3.9 mmol/L (3.3-5.1); Sodium 138 mmol/L (135-145); Total Protein 7.8 g/dL (6.5-8.0)
[2023-10-08 19:35] LABS: HCG Quantitative 143 mIU/mL
[2023-10-08 20:48] VITALS: BP 120/78; PULSE 108; RESP 18; TEMP 37.6; O2SAT 99
[2023-10-08 21:16] LABS: Appearance Urine Clear; Color Urine Yellow; Glucose Urine UA Negative (Negative); Leukocyte Esterase Urine Negative (Negative); Nitrite Urine Negative (Negative); PH 5.5 (5.0-9.0); Urine Blood Negative (Negative); Urine Ketones Negative (Negative); Urine Protein Negative (Neg-Trace)
[2023-10-08 21:20] LABS: UPreg QC Valid YES; Urine Pregnancy POSITIVE (NEGATIVE)
[2023-10-08 22:34] VITALS: BP 120/78; PULSE 108; RESP 18; TEMP 37.6; O2SAT 99
== END 2023-10-08 22:34 | disposition home or self-care (01) ==
PROVIDERS: Physician Assistant Medical; Emergency Provider Emergency Medicine; PCP Internal Medicine
DX: O26.91 Pregnancy related conditions, unspecified, first trimester (principal); Z3A.01 Less than 8 weeks gestation of pregnancy; Z79.899 Other long term (current) drug therapy
CPT/HCPCS: 36415; 76801; 76817; 80053; 81003; 81025; 83690; 83735; 84702; 85025; 99283; 99284

== ENCOUNTER 2023-10-16 21:37 | Emergency (ER) | payer OTHER, SELFPAY ==
--- NOTE | ~2023-10-16 | US_ITS ---
EXAMINATION: US PELVIS CLINICAL INFORMATION: Vaginal bleeding and pain. COMPARISON: None available. TECHNIQUE: Ultrasound of the pelvis is performed using both transabdominal and transvaginal transducers along with Doppler. Transvaginal imaging is performed due to inadequate visualization transabdominally. FINDINGS: Uterus: The uterus is anteverted and measures 8.1 x 3.6 x 5.6 cm. The double wall endometrial thickness is 0.14 mm. There is trace fluid within the endometrial canal. The uterus is smooth in contour and has normal myometrial echogenicity. No visible fibroid. Adnexa: Both ovaries are visualized. There is normal color flow to the adnexa. There is no ovarian torsion. There is no pelvic ascites or fluid collection. Right ovary measures 2.1 x 1.5 x 2.2 cm. Left ovary measures 2.6 x 1.7 x 2.6 cm. US/US pelvic and transvaginal IMPRESSION: 1. Trace fluid within the endometrial canal. 2. Otherwise, normal pelvic ultrasound.
[2023-10-16 21:46] VITALS: BP 151/78; PULSE 93; RESP 18; TEMP 37; O2SAT 99; BMI 30.7
[2023-10-16 22:10] LABS: MANUAL DIFF FLAG NO
[2023-10-16 22:15] LABS: Basophils Absolute Auto 0.1 X10*3/uL (0.0-0.2); Basophils Percent Auto 0.5 % (0-2); Eosinophils Absolute Auto 0.3 X10*3/uL (0.0-0.4); Eosinophils Percent Auto 2.8 % (0-4); Hemoglobin 12.8 g/dl (12.0-16.0); Imm Gran Abs Auto 0.03 X10*3/uL (0.00-0.03); Imm Gran Pct Auto 0.2 % (0.0-0.4); Lymphocytes Absolute Auto 3.8 X10*3/uL (1.2-4.9); Lymphocytes Percent Auto 31.4 % (20-40); Mean Corpuscular HGB Conc 33.7 g/dl (31.0-35.0); Mean Corpuscular Hemoglobin 27.4 pg (27.0-33.0); Mean Corpuscular Volume 81.2 fL (80.0-98.0); Mean Platelet Volume 8.9 fL (9.4-12.3); Monocytes Absolute Auto 0.7 X10*3/uL (0.1-1.2); Monocytes Percent Auto 5.9 % (2-11); Neutrophils Absolute Auto 7.1 x10*3/uL (2.0-8.3); Neutrophils Percent Auto 59.2 % (45-73); Platelet Count 363 X10*3/uL (160-400); Red Blood Count 4.68 X10*6/uL (4.20-5.50); Red Cell Distribution Width 13.1 % (11.0-16.0); White Blood Count 12.1 X10*3/uL (4.8-10.8)
[2023-10-16 22:16] LABS: Appearance Urine Clear; Color Urine Yellow; Glucose Urine UA Negative (Negative); Leukocyte Esterase Urine Small (1+) (Negative); Nitrite Urine Negative (Negative); PH 7.5 (5.0-9.0); UMIC TRIGGER UACC YES; Urine Blood Negative (Negative); Urine Ketones Negative (Negative); Urine Protein Negative (Neg-Trace)
[2023-10-16 22:25] LABS: Bacteria Urine None Seen (None Seen); Hyaline Casts Urine 0-2 /LPF (0-2); RBC Urine 0-2 /HPF (0-2); Squamous Epithelial Cell Urine 0-2 /HPF (0-2); UACC Culture Trigger YES; WBC Urine 0-5 /HPF (0-5)
[2023-10-16 22:39] LABS: Alanine Aminotransferase 18 U/L (0-31); Albumin Level 4.3 g/dL (3.5-5.0); Alkaline Phosphatase 86 U/L (39-117); Anion Gap 11 (12-20); Aspartate Amino Transferase 18 U/L (5-31); Bilirubin Total 0.1 mg/dL (0.0-1.0); Blood Urea Nitrogen 9 mg/dL (9-16); Calcium 9.3 mg/dL (8.4-10.2); Carbon Dioxide 25 mmol/L (22-29); Chloride 108 mmol/L (96-108); Creatinine Clr Calc Pharmacy 99.7; Estimated Glomerular Filt Rate > 60; Glucose Random 98 mg/dL (60-115); HCG Quantitative < 2 mIU/mL; Lipase 31 U/L (8-78); Potassium 3.9 mmol/L (3.3-5.1); Sodium 140 mmol/L (135-145); Total Protein 7.6 g/dL (6.5-8.0)
[2023-10-16 23:15] VITALS: BP 118/75; PULSE 75; RESP 16; TEMP 37.1; O2SAT 99
[2023-10-17] MEDS: Ketorolac Tromethamine 15 MG/ML VIAL IVPUSH (01:23)
[2023-10-17 01:27] VITALS: BP 113/71; PULSE 71; RESP 16; O2SAT 98
--- NOTE | 2023-10-17 01:43 | ED.ABDPAIN ---
HPI - Abdominal Pain General Chief Complaint: Abdominal Pain Stated Complaint: cramping abd pain, miscarriage 10/11 Time Seen by Provider: 10/16/23 23:36 Source: patient and family Mode of arrival: ambulatory History of Present Illness ED Provider: sarah MARTINEZ narrative: 38-year-old female presenting for abdominal pain and vaginal bleeding. Patient was diagnosed with miscarriage at 5 weeks this past Friday. She states that she has since been having vaginal bleeding that has improved however she has had worsening abdominal pain. She denies nausea, vomiting, diarrhea. She states her abdominal pain feels like extreme cramping and there has been no relief with Tylenol or Motrin MD elicited complaint: abdominal pain Related Data Previous Rx's ?Medication ?Instructions ?Recorded ondansetron 4 mg disintegrating 4 mg PO DAILY PRN nausea and 12/29/22 tablet vomiting 5 days #10 tabs Allergies Allergy/AdvReac Type Severity Reaction Status Date / Time No Known Allergies Allergy Verified 10/16/23 21:49 Review of Systems Review of Systems Patient endorses abdominal pain and vaginal bleeding She denies nausea, vomiting, chest pain, shortness of breath, head pain, diarrhea PMFSH Social History Social History Alcohol intake: never Smoked in Last 30 Days: No Use of substances other than those prescribed or required for medical reasons: No Advance Directives: No Advance Directives Information Provided: No Patient : No Physical Exam ED Vital Signs: Vital Signs - 24 hr 10/16/23 21:46 10/16/23 23:15 10/17/23 01:27 Temperature 98.6 F 98.8 F Pulse Rate 93 75 71 Respiratory Rate 18 16 16 Blood Pressure 151/78 H 118/75 113/71 Pulse Oximetry 99 99 98 Oxygen Delivery Method Room Air Room Air Room Air BMI result Body Mass Index 30.7 Lower abdominal tenderness to palpation somehow abdomen otherwise soft and nondistended Bedside fast negative for free fluid Lungs clear auscultation bilaterally; normal S1-S2 regular rate and rhythm Course Course Course Narrative: labs and imaging studies ordered Medical Decision Making Medical Decision Making MDM Narrative: Patient states that she had a confirmed IUP source symptoms are less likely secondary to an ectopic . I suspect pain that she is feeling is secondary to her miscarriage however I am also considering retained products of conception, UTI I ordered analgesics, labs and transvaginal ultrasound pt signed out to night attending Differential Diagnosis Differential Diagnoses: The differential diagnosis associated with the presentation includes Pain secondary to miscarriage and expulsion, retained products of conception, UTI Less likely ectopic, nephrolithiasis, gastroenteritis, diverticulitis Lab Data [facility] Lab Attestation statement: I reviewed the patient's lab results. H&H stable; no severe abnormalities on BMP 10/16/23 22:03 10/16/23 22:03 Labs: Lab Results 10/16/23 Range/Units 22:03 WBC 12.1 H (4.8-10.8) X10*3/uL RBC 4.68 (4.20-5.50) X10*6/uL Hgb 12.8 (12.0-16.0) g/dl Hct 38.0 (37.0-47.0) % MCV 81.2 (80.0-98.0) fL MCH 27.4 (27.0-33.0) pg MCHC 33.7 (31.0-35.0) g/dl RDW 13.1 (11.0-16.0) % Plt Count 363 (160-400) X10*3/uL MPV 8.9 L (9.4-12.3) fL Immature Gran % (Auto) 0.2 (0.0-0.4) % Neut % (Auto) 59.2 (45-73) % Lymph % (Auto) 31.4 (20-40) % [place] % (Auto) 5.9 (2-11) % Eos % (Auto) 2.8 (0-4) % Baso % (Auto) 0.5 (0-2) % Lymph # (Auto) 3.8 (1.2-4.9) X10*3/uL [place] # (Auto) 0.7 (0.1-1.2) X10*3/uL Eos # (Auto) 0.3 (0.0-0.4) X10*3/uL Baso # (Auto) 0.1 (0.0-0.2) X10*3/uL Abs Immat Gran (auto) 0.03 (0.00-0.03) X10*3/uL Absolute Neuts (auto) 7.1 (2.0-8.3) x10*3/uL Absolute Nucleated RBC 0.000 (0.0-0.012) X10*3/uL Nucleated RBC % (auto) 0.0 (0.0-0.2) /100WBC Sodium 140 (135-145) mmol/L Potassium 3.9 (3.3-5.1) mmol/L Chloride 108 (96-108) mmol/L Carbon Dioxide 25 (22-29) mmol/L Anion Gap 11 L (12-20) BUN 9 (9-16) mg/dL Creatinine 0.68 (0.5-1.4) mg/dL Estim Creat Clear Calc 99.7 Estimated GFR > 60 Random Glucose 98 (60-115) mg/dL Calcium 9.3 (8.4-10.2) mg/dL Total Bilirubin 0.1 (0.0-1.0) mg/dL AST 18 (5-31) U/L ALT 18 (0-31) U/L Alkaline Phosphatase 86 (39-117) U/L Total Protein 7.6 (6.5-8.0) g/dL Albumin 4.3 (3.5-5.0) g/dL Lipase 31 (8-78) U/L Beta HCG, Quant < 2 mIU/mL Urine Color Yellow Urine Appearance Clear Urine pH 7.5 (5.0-9.0) Ur Specific [place] 1.020 (1.005-1.025) Urine Protein Negative (Neg-Trace) mg/dL Urine Glucose (UA) Negative (Negative) mg/dL Urine Ketones Negative (Negative) mg/dL Urine Blood Negative (Negative) Urine Nitrite Negative (Negative) Ur Leukocyte Esterase Small (1+) H (Negative) Urine RBC 0-2 (0-2) /HPF Urine WBC 0-5 (0-5) /HPF Ur Squamous Epith Cells 0-2 (0-2) /HPF Urine Bacteria None Seen (None Seen) Hyaline Casts 0-2 (0-2) /LPF Medications Administered Discontinued Medications Generic Name Dose Route Start Last Admin Trade Name Freq PRN Reason Stop Dose Admin Ketorolac Tromethamine 15 mg 10/16/23 23:40 10/17/23 01:23 Ketorolac Tromethamine 15 Mg/Ml Vial IVPUSH 10/16/23 23:41 15 mg ONCE ONE Administration Discharge Plan Discharge Clinical Impression: Abdominal pain, Vaginal bleeding Prescriptions: No Action ondansetron 4 mg tablet,disintegrating 4 mg PO DAILY PRN (Reason: nausea and vomiting) 5 Days Qty: 10 0RF Print Language: Welsh
[2023-10-17 04:10] VITALS: BP 101/70; PULSE 75; RESP 16; TEMP 36.9; O2SAT 100
[2023-10-17 07:02] VITALS: BP 122/58; PULSE 102; RESP 18; TEMP 37.2; O2SAT 99
== END 2023-10-17 06:22 | disposition home or self-care (01) ==
PROVIDERS: Student in an Organized Health Care Education/Training Program; Emergency Provider Emergency Medicine; PCP Internal Medicine
DX: R10.9 Unspecified abdominal pain (principal); N93.9 Abnormal uterine and vaginal bleeding, unspecified
CPT/HCPCS: 36415; 76830; 76856; 80053; 81001; 83690; 84702; 85025; 87086; 99284; 99285; J1885

== ENCOUNTER 2024-03-04 09:05 | Emergency (ER) | payer OTHER, SELFPAY ==
--- NOTE | ~2024-03-04 | US_ITS ---
EXAMINATION: US OBSTETRICAL ULTRASOUND CLINICAL INFORMATION: Suprapubic cramping. COMPARISON: Pelvic ultrasound dated 10/17/2023. TECHNIQUE: Transabdominal and transvaginal Limited obstetrical ultrasound. A transvaginal study was performed in addition to the transabdominal study which did not yield an adequate examination of the due to superimposed distended gas-filled loops of bowel. FINDINGS: For the patient's last menstrual period of 01/31/2024, a 4 week 5 day gestation as expected with estimated date of delivery of 11/06/2024. The uterus is normal in size. The endometrial stripe thickness measures up to 1.4 cm on the transvaginal exam. There is a tiny 0.3 x 0.1 x 0.3 cm cystic structure seen within the endometrium, likely representing the gestational sac with a mean sac diameter of 0.25 cm which equals 4 weeks and 5 days. No pole or internal yolk sac is identified. The uterus is otherwise unremarkable. The right ovary measures 2.1 x 0.7 x 1.4 cm and the left ovary 4.4 x 2.1 x 2.8 cm. There is a 2.4 x 1.8 x 2 cm complex cyst in the left ovary with low-level internal echoes and mild peripheral vascular flow with Doppler assessment, consistent with a corpus luteum cyst. US/US OB pelvic and transvaginal IMPRESSION: Single intrauterine gestational sac is identified with mean sac diameter of 4 weeks and 5 days and estimated date of delivery of 11/06/2024. These dates match clinical dates. At this early stage, no further structures of the are identifiable. Close clinical correlation and serial beta hCG and ultrasound follow-up is recommended to confirm continued normal progression of the . Electronically signed by: Judi Munoz MD 03/04/2024 12:26 PM [facility]
[2024-03-04 09:22] VITALS: BP 117/79; PULSE 100; RESP 16; TEMP 36.9; O2SAT 100; BMI 31.3
--- NOTE | 2024-03-04 09:43 | ED_ITS ---
HPI - Female Genitourinary General Chief complaint: Urogenital-Female Stated complaint: vaginal pain Time Seen by Provider: 03/04/24 09:43 Source: patient and RN notes reviewed Mode of arrival: ambulatory Limitations: no limitations History of Present Illness ED Provider: Priyanka Harris PA-C [facility] Narrative: This is a 38-year-old female, , who presents emergency department with complaints of dysuria since yesterday. Patient reports that since yesterday she has noticed burning with urination, urinary frequency and urgency. She also states that her external genitalia is burning and sensation. She states that on Friday she went to [facility] Emergency Department and was made aware that she was . She states that at that time she had a ultrasound but they were unable to detect the gestational sac as she is too early in her . She does report she has had some lower abdominal cramping, state that this is very mild, and has not worsened. She states that she has not had any abnormal vaginal discharge or bleeding. No fevers or chills. No nausea, vomiting or diarrhea. She has been taking prenatals. She does not have an OBGYN established as of yet. No other complaints or concerns at this time. MD elicited complaint: dysuria and UTI Pertinent past history: recurrent UTIs Location of symptoms: external genitalia, urethra and pelvis Severity: moderate Female Urogenital Radiation: Non-Radiating Quality of pain: burning Consistency: constant Vaginal discharge: none Vaginal bleeding: none Urinary symptoms: Dysuria, Urgency and Frequency Exacerbating factors: urination and palpation Relieving factors: none Associated symptoms: abdominal pain Treatment prior to arrival: none Sexual activity: Yes Patient : Yes Date of Last Menstrual Period: 01/31/24 Related Data : 6 Para: 4 Total number of abortions (spontaneous and elective): 1 Previous Rx's ?Medication ?Instructions ?Recorded ondansetron 4 mg disintegrating 4 mg PO DAILY PRN nausea and 12/29/22 tablet vomiting 5 days #10 tabs cephalexin 500 mg capsule 500 mg PO QID 7 days #28 caps 03/04/24 Allergies Allergy/AdvReac Type Severity Reaction Status Date / Time No Known Allergies Allergy Verified 03/04/24 09:25 Review of Systems 2 Review of Systems: Yes all other systems are reviewed and are negative Constitutional: Constitutional: Reports as per [facility] Past Medical History : 6 Para: 4 Total number of abortions (spontaneous and elective): 1 Date of Last Menstrual Period: 01/31/24 Social History Social History Alcohol intake: never Advance Directives: No Advance Directives Information Provided: Yes Patient : Yes Physical Exam 2 Vital Signs: Vital Signs: Last Vital Signs Temp 98.4 F 03/04/24 09:22 Pulse 100 03/04/24 09:22 Resp 16 03/04/24 09:22 BP 117/79 03/04/24 09:22 Pulse Ox 100 03/04/24 09:22 O2 Del Method Room Air 03/04/24 09:22 BMI result Body Mass Index 31.3 Const: General: cooperative, comfortable and no acute distress O rientation/consciousness: patient oriented x3 Limitations: no limitations HEENT: Head: Yes normal to inspection, Yes normocephalic and Yes atraumatic Ears: hearing grossly normal bilaterally General nose exam: Normal external nose present Face and sinus: Yes normal facial exam Mouth: Normal oral and palatal mucosa present, oropharynx normal and moist mucous membranes Throat: Yes posterior oropharynx normal Eyes: General: appearance normal, both eyes and all related structures E yelids: Yes eyelids normal Conjunctivae: conjunctivae normal Sclerae: s clerae normal Pupils: Equal, round and reactive pupils present EOM: EOMs intact bilaterally Neck: Neck: Yes normal visual inspection, Yes full ROM and Yes no lymphadenopathy Lymphatic: no lymphadenopathy noted Chest: Chest palpation & inspection: normal inspection of the chest Resp: Effort & Inspection: normal respiratory effort and able to speak in complete sentences Auscultation: clear to auscultation bilaterally, no crackles, no rales, no rhonchi and no wheezes Cardio: Rate: regular rate Rhythm: regular rhythm Heart sounds: S1 normal heart sound present and S2 normal heart sound present GI: Other: Abdomen is soft, nontender, nondistended Inspection: Yes normal to inspection Skin: General skin exam: no rashes or lesions noted Trauma: no lacerations or abrasions Wounds: no wounds Neuro: General: patient oriented x3 and moves all extremities Cranial nerves: Yes Equal, round and reactive pupils present Extrem: General: Yes normal to inspection Right upper extremity: normal to inspection Left upper extremity: normal to inspection Right lower extremity: normal to inspection Left lower extremity: normal to inspection Course Reevaluation(s) Reevaluation #1: Ultrasound revealing single intrauterine gestational sac, KIM of 11/06/2024. Urine appears to be infected, patient has no leukocytosis, stable H&H, beta quant 1174, Rh type O positive. Abdomen is soft and nontender. Swabs were collected, discussed with patient that we will call you with any abnormal results. Patient understands and agrees with plan. Time: 14:12 Medical Decision Making Medical Decision Making [facility] Narrative: This is a 38-year-old female who presents emergency department with complaints of urinary frequency, urgency, dysuria. She also states burning to external genitalia since yesterday. Last menstrual period was on January 30. Denies any vaginal discharge or bleeding. On arrival, vital signs within normal limits. She is speaking in full sentences under no acute distress. Differential diagnoses include threatened , , ectopic urinary tract infection, pyelonephritis-unlikely Differential Diagnosis Differential Diagnoses: The differential diagnosis associated with the presentation includes See above Lab Data [facility] Lab Attestation statement: I reviewed the patient's lab results. 03/04/24 10:36 03/04/24 10:36 Labs: Lab Results 03/04/24 03/04/24 Range/Units 09:32 10:36 WBC 9.0 (4.8-10.8) X10*3/uL RBC 4.73 (4.20-5.50) X10*6/uL Hgb 12.5 (12.0-16.0) g/dl Hct 38.6 (37.0-47.0) % MCV 81.6 (80.0-98.0) fL MCH 26.4 L (27.0-33.0) pg MCHC 32.4 (31.0-35.0) g/dl RDW 12.7 (11.0-16.0) % Plt Count 350 (160-400) X10*3/uL MPV 9.0 L (9.4-12.3) fL Immature Gran % (Auto) 0.2 (0.0-0.4) % Neut % (Auto) 69.4 (45-73) % Lymph % (Auto) 23.1 (20-40) % [place] % (Auto) 4.7 (2-11) % Eos % (Auto) 1.8 (0-4) % Baso % (Auto) 0.8 (0-2) % Lymph # (Auto) 2.1 (1.2-4.9) X10*3/uL [place] # (Auto) 0.4 (0.1-1.2) X10*3/uL Eos # (Auto) 0.2 (0.0-0.4) X10*3/uL Baso # (Auto) 0.1 (0.0-0.2) X10*3/uL Abs Immat Gran (auto) 0.02 (0.00-0.03) X10*3/uL Absolute Neuts (auto) 6.3 (2.0-8.3) x10*3/uL Absolute Nucleated RBC 0.000 (0.0-0.012) X10*3/uL Nucleated RBC % (auto) 0.0 (0.0-0.2) /100WBC Sodium 138 (135-145) mmol/L Potassium 4.3 (3.3-5.1) mmol/L Chloride 105 (96-108) mmol/L Carbon Dioxide 25 (22-29) mmol/L Anion Gap 12 (12-20) BUN 8 L (9-16) mg/dL Creatinine 0.59 (0.5-1.4) mg/dL Estim Creat Clear Calc 116.2 Estimated GFR > 60 Random Glucose 92 (60-115) mg/dL Calcium 9.7 (8.4-10.2) mg/dL Total Bilirubin 0.3 (0.0-1.0) mg/dL AST 18 (5-31) U/L ALT 19 (0-31) U/L Alkaline Phosphatase 65 (39-117) U/L Total Protein 7.4 (6.5-8.0) g/dL Albumin 4.3 (3.5-5.0) g/dL Beta HCG, Quant 1174 mIU/mL Urine Color Yellow Urine Appearance Clear Urine pH 8.0 (5.0-9.0) Ur Specific [place] 1.020 (1.005-1.025) Urine Protein Negative (Neg-Trace) mg/dL Urine Glucose (UA) Negative (Negative) mg/dL Urine Ketones Trace (Negative) mg/dL Urine Blood Negative (Negative) Urine Nitrite Negative (Negative) Ur Leukocyte Esterase Small (1+) H (Negative) Urine RBC 0-2 (0-2) /HPF Urine WBC 6-10 H (0-5) /HPF Ur Squamous Epith Cells 6-10 (0-2) /HPF Urine Bacteria 1+ (None Seen) Hyaline Casts 3-5 (0-2) /LPF Blood Type O Positive Radiology Impression Discussion of test interpretation with radiology: I have reviewed the radiologist's reading. External Record Review External record reviewed: Inpatient record, Office record, Outpatient record, Prior outpatient labs, Prior outpatient radiology, Primary care record and Outside ED record Discharge Plan Discharge Clinical Impression: Urinary tract infection, Patient Disposition: Still a Patient Instructions: (ED), Urinary Tract Infection in Women (ED) Additional Instructions: You were seen in the emergency department due to urinary symptoms. Your urine does appear to be infected, please take course of antibiotics. Finish the entire course even if your symptoms improve. Drink plenty of fluids get plenty of rest. We will call you with any abnormal results from your swabs were collected today. You are blood type O positive. Your ultrasound report is as follows: US/US OB pelvic and transvaginal IMPRESSION: Single intrauterine gestational sac is identified with mean sac diameter of 4 weeks and 5 days and estimated date of delivery of 11/06/2024. These dates match clinical dates. At this early stage, no further structures of the are identifiable. Close clinical correlation and serial beta hCG and ultrasound follow-up is recommended to confirm continued normal progression of the . Electronically signed by: Judi Munoz MD 03/04/2024 12:26 PM [facility] Your beta quant testing was 1174. You need to follow-up with your OBGYN. If any new or worsening symptoms occur including but not limited to severe pelvic pain, vaginal bleeding, please seek emergent care. Prescriptions: New cephalexin 500 mg capsule 500 mg PO QID 7 Days Qty: 28 0RF No Action ondansetron 4 mg tablet,disintegrating 4 mg PO DAILY PRN (Reason: nausea and vomiting) 5 Days Qty: 10 0RF Print Language: French
[2024-03-04 09:53] LABS: Appearance Urine Clear; Color Urine Yellow; Glucose Urine UA Negative (Negative); Leukocyte Esterase Urine Small (1+) (Negative); Nitrite Urine Negative (Negative); UMIC TRIGGER UACC YES; Urine Blood Negative (Negative); Urine Ketones Trace mg/dL (Negative); Urine Protein Negative (Neg-Trace)
[2024-03-04 09:56] LABS: Bacteria Urine 1+ (None Seen); RBC Urine 0-2 /HPF (0-2); UACC Culture Trigger YES
[2024-03-04 10:42] LABS: MANUAL DIFF FLAG NO
[2024-03-04 10:44] LABS: Basophils Absolute Auto 0.1 X10*3/uL (0.0-0.2); Basophils Percent Auto 0.8 % (0-2); Eosinophils Absolute Auto 0.2 X10*3/uL (0.0-0.4); Eosinophils Percent Auto 1.8 % (0-4); Hematocrit 38.6 % (37.0-47.0); Hemoglobin 12.5 g/dl (12.0-16.0); Imm Gran Abs Auto 0.02 X10*3/uL (0.00-0.03); Imm Gran Pct Auto 0.2 % (0.0-0.4); Lymphocytes Absolute Auto 2.1 X10*3/uL (1.2-4.9); Lymphocytes Percent Auto 23.1 % (20-40); Mean Corpuscular HGB Conc 32.4 g/dl (31.0-35.0); Mean Corpuscular Hemoglobin 26.4 pg (27.0-33.0); Mean Corpuscular Volume 81.6 fL (80.0-98.0); Monocytes Absolute Auto 0.4 X10*3/uL (0.1-1.2); Monocytes Percent Auto 4.7 % (2-11); Neutrophils Absolute Auto 6.3 x10*3/uL (2.0-8.3); Neutrophils Percent Auto 69.4 % (45-73); Platelet Count 350 X10*3/uL (160-400); Red Blood Count 4.73 X10*6/uL (4.20-5.50); Red Cell Distribution Width 12.7 % (11.0-16.0)
[2024-03-04 10:58] LABS: Alanine Aminotransferase 19 U/L (0-31); Albumin Level 4.3 g/dL (3.5-5.0); Anion Gap 12 (12-20); Aspartate Amino Transferase 18 U/L (5-31); Bilirubin Total 0.3 mg/dL (0.0-1.0); Blood Urea Nitrogen 8 mg/dL (9-16); Calcium 9.7 mg/dL (8.4-10.2); Carbon Dioxide 25 mmol/L (22-29); Chloride 105 mmol/L (96-108); Creatinine Clr Calc Pharmacy 116.2; Estimated Glomerular Filt Rate > 60; Glucose Random 92 mg/dL (60-115); Potassium 4.3 mmol/L (3.3-5.1); Sodium 138 mmol/L (135-145); Total Protein 7.4 g/dL (6.5-8.0)
[2024-03-04 11:06] LABS: HCG Quantitative 1174 mIU/mL
[2024-03-04 11:54] LABS: Alkaline Phosphatase 65 U/L (39-117)
[2024-03-04 14:44] VITALS: BP 117/79; PULSE 100; RESP 16; TEMP 36.9; O2SAT 100
[2024-03-04 16:55] LABS: Bacterial Vaginosis PCR NEGATIVE (Negative); Candida Group PCR NOT DETECTED (Not Detect); Candida glab krusei PCR NOT DETECTED (Not Detect); Trichomonas vaginalis PCR NOT DETECTED (Not Detect)
[2024-03-04 17:27] LABS: CT PCR NOT DETECTED (Not Detect.); NG PCR NOT DETECTED (Not Detect.)
== END 2024-03-04 14:44 | disposition home or self-care (01) ==
PROVIDERS: Physician Assistant Medical; Emergency Provider Emergency Medicine; PCP Internal Medicine
DX: O23.41 Unspecified infection of urinary tract in pregnancy, first trimester (principal); N39.0 Urinary tract infection, site not specified; Z3A.01 Less than 8 weeks gestation of pregnancy
CPT/HCPCS: 0352U; 36415; 76801; 76817; 80053; 81001; 84702; 85025; 86900; 86901; 87086; 87491; 87591; 99282; 99284

== ENCOUNTER 2024-03-26 16:50 | Emergency (ER) | payer OTHER, SELFPAY ==
--- NOTE | ~2024-03-26 | US_ITS ---
CLINICAL HISTORY: pain US OB 1st trimester transabdominal Comparison: US/[place]/SR - US OB PELVIC AND TRANSVAGINAL - 03/04/24 11:27 EST Findings: Single living intrauterine gestation with crown-rump length of 1.4 cm. heart rate 156 beats per minute. No perigestational hemorrhage. Both ovaries normal in size and appearance. IMPRESSION: Single intrauterine estimated 7 weeks 5 days gestational age by today's ultrasound criteria. This document has been electronically signed by: Bora Valenzuela MD on 03/26/2024 19:05:21
[2024-03-26 17:06] VITALS: BP 131/72; PULSE 95; RESP 18; TEMP 36.5; O2SAT 100; BMI 31.9
--- NOTE | 2024-03-26 17:09 | ED_ITS ---
HPI - Female Genitourinary General Chief complaint: Urogenital-Female Stated complaint: 8w preg+ , sierra w/ urine and swelling Time Seen by Provider: 03/26/24 22:49 Source: patient Mode of arrival: ambulatory Limitations: no limitations History of Present Illness ED Provider: Dr. Sintia Irby HPI Narrative: Patient is at approximately 8 weeks of gestational age, comes to the emergency room complaining of burning with urination. Patient states that she there has malodorous urine versus vaginal discharge. Patient denies vaginal spotting or bleeding. Denies abdominal pain. Patient denies fever, chills, nausea vomiting or diarrhea or flank pain. Related Data Previous Rx's ?Medication ?Instructions ?Recorded ondansetron 4 mg disintegrating 4 mg PO DAILY PRN nausea and 12/29/22 tablet vomiting 5 days #10 tabs cephalexin 500 mg capsule 500 mg PO QID 7 days #28 caps 03/04/24 metronidazole 500 mg tablet 500 mg PO BID #13 tabs 03/26/24 Allergies Allergy/AdvReac Type Severity Reaction Status Date / Time No Known Allergies Allergy Verified 03/26/24 17:08 Review of Systems 2 Review of Systems: Constitutional : No Weight loss, No Fever, No Chills, No Night Sweats, No Fatigue, No Malaise ENT/Mouth : No Hearing loss, No Ear Pain, No Nasal Congestion, No Sinus Pain, No Hoarseness, No sore throat, No Rhinorrhea, No Swallowing Difficulty Eyes: No Eye Pain, No Swelling, No Redness, No Foreign Body, No Discharge, No Vision Changes Cardiovascular : No Chest Pain, No SOB, No Dyspnea on Exertion, No Orthopnea, No Edema, No Palpitations Respiratory : No Cough, No Sputum, No Wheezing, No Smoke Exposure, No Dyspnea Gastrointestinal : No Nausea, No Vomiting, No Diarrhea, No Constipation, No abdominal Pain, No Hematochezia, No Melena Genitourinary : Complaining of malodorous vaginal discharge or urine, complaining of Dysuria, No Urinary Frequency, No Hematuria, No Urinary Incontinence, No Urgency, No Flank Pain, No Urinary Flow Changes, No Hesitancy Musculoskeletal : No joint pain, No Myalgias, No Joint Swelling Skin : No Skin Lesions, No rash Neuro : No Weakness, No Numbness, No Paresthesias, No Loss of Consciousness, No Dizziness, No Headache Psych : No Anxiety/Panic, No Depression, No SI/HI/AH/VH, No Social Issues, Heme/Lymph: No Bruising, No Bleeding,No Lymphadenopathy Endocrine : No Polyuria, No Polydipsia, No Temperature Intolerance [facility] Social History Social History Alcohol intake: never Advance Directives: No Advance Directives Information Provided: No Physical Exam 2 Vital Signs: Vital Signs: Last Vital Signs Temp 97.7 F 03/26/24 17:06 Pulse 95 03/26/24 17:06 Resp 18 03/26/24 17:06 BP 131/72 03/26/24 17:06 Pulse Ox 100 03/26/24 17:06 O2 Del Method Room Air 03/26/24 17:06 BMI result Body Mass Index 31.9 Const: Other: Appearance: Alert. Oriented X3. No acute distress. Eyes: Pupils equal, round and reactive to light. ENT: Pharynx normal. Neck: Normal inspection. Neck supple. No lymph nodes noted. No crepitus CVS: Normal heart rate and rhythm. Pulses normal. Normal S1 and S2 Respiratory: No respiratory distress. Breath sounds normal. No Wheezing. No rales Abdomen: Soft and nontender. No rigidity. No distention. : Patient has a erythema in the vulvar area, grayish thin vaginal discharge Skin: Skin warm and dry. Normal skin color. Normal skin turgor. Extremities: No lower extremity edema. No Lacerations. No Rash Neuro: Oriented X 3. No motor deficit. No sensory deficit. Moving all extremities. No slurred speech. CN 2 through 12 grossly intact Psych: calm, cooperative, normal affect Course Course Course Narrative: RME, this is a rapid medical exam performed by Arnaud Hodges please refer to primary provider for complete H&P- 38-year-old female who was , approximately 8 weeks presents for evaluation of lower abdominal pain with yellowish discharge. Her pain radiates through to her back, she has not yet had an ultrasound. Plan for labs, ultrasound to rule out ectopic . Medical Decision Making Medical Decision Making [facility] Narrative: My interpretation of labs: Patient's hematology shows a white blood cell count of 12.3, likely reactive leukocytosis secondary to . Chemistry within normal limits, hCG appropriate at 111,345. Urinalysis negative for UTI. Ultrasound shows an intrauterine at 7 weeks and 5 days of gestational age, heart rate present, 156. My physical exam, patient has a grayish vaginal discharge, erythema in the vulvar area, patient likely has bacterial vaginosis. She was given the 1st dose metronidazole in the ED Swabs were obtained, discussed with the patient that results may take up to 72 hours to return. Patient already taking vitamins, patient has an OBGYN. Differential Diagnosis Differential Diagnoses: The differential diagnosis associated with the presentation includes (Bacterial vaginosis, Trichomonas, gonorrhea, chlamydia, UTI) Lab Data MDM Lab Attestation statement: I reviewed the patient's lab results. 03/26/24 17:22 03/26/24 17:21 Labs: Lab Results 03/26/24 03/26/24 03/26/24 Range/Units 17:21 17:22 17:25 WBC 12.3 H (4.8-10.8) X10*3/uL RBC 4.52 (4.20-5.50) X10*6/uL Hgb 12.3 (12.0-16.0) g/dl Hct 36.9 L (37.0-47.0) % MCV 81.6 (80.0-98.0) fL MCH 27.2 (27.0-33.0) pg MCHC 33.3 (31.0-35.0) g/dl RDW 13.0 (11.0-16.0) % Plt Count 364 (160-400) X10*3/uL MPV 9.1 L (9.4-12.3) fL Immature Gran % (Auto) 0.3 (0.0-0.4) % Neut % (Auto) 71.8 (45-73) % Lymph % (Auto) 20.7 (20-40) % [place] % (Auto) 4.9 (2-11) % Eos % (Auto) 2.0 (0-4) % Baso % (Auto) 0.3 (0-2) % Lymph # (Auto) 2.5 (1.2-4.9) X10*3/uL [place] # (Auto) 0.6 (0.1-1.2) X10*3/uL Eos # (Auto) 0.3 (0.0-0.4) X10*3/uL Baso # (Auto) 0.0 (0.0-0.2) X10*3/uL Abs Immat Gran (auto) 0.04 H (0.00-0.03) X10*3/uL Absolute Neuts (auto) 8.8 H (2.0-8.3) x10*3/uL Absolute Nucleated RBC 0.000 (0.0-0.012) X10*3/uL Nucleated RBC % (auto) 0.0 (0.0-0.2) /100WBC Sodium 136 (135-145) mmol/L Potassium 3.5 (3.3-5.1) mmol/L Chloride 105 (96-108) mmol/L Carbon Dioxide 24 (22-29) mmol/L Anion Gap 11 L (12-20) BUN 8 L (9-16) mg/dL Creatinine 0.56 (0.5-1.4) mg/dL Estim Creat Clear Calc 123.6 Estimated GFR > 60 Random Glucose 111 (60-115) mg/dL Calcium 9.4 (8.4-10.2) mg/dL Total Bilirubin 0.1 (0.0-1.0) mg/dL AST 18 (5-31) U/L ALT 21 (0-31) U/L Alkaline Phosphatase 77 (39-117) U/L Total Protein 7.5 (6.5-8.0) g/dL Albumin 4.1 (3.5-5.0) g/dL Lipase 28 (8-78) U/L Beta HCG, Quant 958751 mIU/mL Urine Color Yellow Urine Appearance Clear Urine pH 6.5 (5.0-9.0) Ur Specific [place] <= 1.005 (1.005-1.025) Urine Protein Negative (Neg-Trace) mg/dL Urine Glucose (UA) Negative (Negative) mg/dL Urine Ketones Negative (Negative) mg/dL Urine Blood Negative (Negative) Urine Nitrite Negative (Negative) Ur Leukocyte Esterase Negative (Negative) Urine RBC 0-2 (0-2) /HPF Urine WBC 0-5 (0-5) /HPF Ur Squamous Epith Cells 0-2 (0-2) /HPF Urine Bacteria None Seen (None Seen) Hyaline Casts 0-2 (0-2) /LPF Blood Type O Positive Discharge Plan Discharge Clinical Impression: Bacterial vaginosis Patient Disposition: Home, Self-Care Instructions: Bacterial Vaginosis (ED) Additional Instructions: Please follow-up with your primary care physician tomorrow. If you have any worsening or new symptoms, please return to the emergency room or call 911 Prescriptions: New metronidazole 500 mg tablet 500 mg PO BID Qty: 13 0RF No Action ondansetron 4 mg tablet,disintegrating 4 mg PO DAILY PRN (Reason: nausea and vomiting) 5 Days Qty: 10 0RF cephalexin 500 mg capsule 500 mg PO QID 7 Days Qty: 28 0RF Print Language: Japanese
[2024-03-26 17:25] LABS: MANUAL DIFF FLAG NO
[2024-03-26 17:30] LABS: Appearance Urine Clear; Color Urine Yellow; Glucose Urine UA Negative (Negative); Leukocyte Esterase Urine Negative (Negative); Nitrite Urine Negative (Negative); PH 6.5 (5.0-9.0); Specific Gravity - Urine <= 1.005 (1.005-1.025); Urine Blood Negative (Negative); Urine Ketones Negative (Negative); Urine Protein Negative (Neg-Trace)
[2024-03-26 17:32] LABS: Basophils Percent Auto 0.3 % (0-2); Eosinophils Absolute Auto 0.3 X10*3/uL (0.0-0.4); Hematocrit 36.9 % (37.0-47.0); Hemoglobin 12.3 g/dl (12.0-16.0); Imm Gran Abs Auto 0.04 X10*3/uL (0.00-0.03); Imm Gran Pct Auto 0.3 % (0.0-0.4); Lymphocytes Absolute Auto 2.5 X10*3/uL (1.2-4.9); Lymphocytes Percent Auto 20.7 % (20-40); Mean Corpuscular HGB Conc 33.3 g/dl (31.0-35.0); Mean Corpuscular Hemoglobin 27.2 pg (27.0-33.0); Mean Corpuscular Volume 81.6 fL (80.0-98.0); Mean Platelet Volume 9.1 fL (9.4-12.3); Monocytes Absolute Auto 0.6 X10*3/uL (0.1-1.2); Monocytes Percent Auto 4.9 % (2-11); Neutrophils Absolute Auto 8.8 x10*3/uL (2.0-8.3); Neutrophils Percent Auto 71.8 % (45-73); Platelet Count 364 X10*3/uL (160-400); Red Blood Count 4.52 X10*6/uL (4.20-5.50); White Blood Count 12.3 X10*3/uL (4.8-10.8)
[2024-03-26 17:52] LABS: Alanine Aminotransferase 21 U/L (0-31); Albumin Level 4.1 g/dL (3.5-5.0); Alkaline Phosphatase 77 U/L (39-117); Anion Gap 11 (12-20); Aspartate Amino Transferase 18 U/L (5-31); Bilirubin Total 0.1 mg/dL (0.0-1.0); Blood Urea Nitrogen 8 mg/dL (9-16); Calcium 9.4 mg/dL (8.4-10.2); Carbon Dioxide 24 mmol/L (22-29); Chloride 105 mmol/L (96-108); Creatinine Clr Calc Pharmacy 123.6; Estimated Glomerular Filt Rate > 60; Glucose Random 111 mg/dL (60-115); Lipase 28 U/L (8-78); Potassium 3.5 mmol/L (3.3-5.1); Sodium 136 mmol/L (135-145); Total Protein 7.5 g/dL (6.5-8.0)
[2024-03-26 17:58] LABS: Bacteria Urine None Seen (None Seen); Hyaline Casts Urine 0-2 /LPF (0-2); RBC Urine 0-2 /HPF (0-2); Squamous Epithelial Cell Urine 0-2 /HPF (0-2); WBC Urine 0-5 /HPF (0-5)
[2024-03-26 18:10] LABS: HCG Quantitative 111345 mIU/mL
[2024-03-26] MEDS: metroNIDAZOLE 500 MG TABLET PO (23:52)
[2024-03-26 23:55] VITALS: BP 128/62; PULSE 82; RESP 16; TEMP 37; O2SAT 98
[2024-03-26 23:57] VITALS: BP 128/62; PULSE 82; RESP 16; TEMP 37; O2SAT 98
[2024-03-27 12:36] LABS: Bacterial Vaginosis PCR NEGATIVE (Negative); Candida Group PCR NOT DETECTED (Not Detect); Candida glab krusei PCR NOT DETECTED (Not Detect); Trichomonas vaginalis PCR NOT DETECTED (Not Detect)
[2024-03-27 13:08] LABS: CT PCR NOT DETECTED (Not Detect.); NG PCR NOT DETECTED (Not Detect.)
[2024-03-27 13:19] LABS: CT PCR NOT DETECTED (Not Detect.); NG PCR NOT DETECTED (Not Detect.)
== END 2024-03-26 23:58 | disposition home or self-care (01) ==
PROVIDERS: Physician Assistant; Emergency Provider Emergency Medicine; PCP Internal Medicine
DX: O23.591 Infection of other part of genital tract in pregnancy, first trimester (principal); N76.0 Acute vaginitis; Z3A.08 8 weeks gestation of pregnancy
CPT/HCPCS: 36415; 76801; 80053; 81001; 81515; 83690; 84702; 85025; 86900; 86901; 87491; 87591; 99284

== ENCOUNTER 2024-04-25 12:18 | Emergency (ER) | payer OTHER, SELFPAY ==
--- NOTE | ~2024-04-25 | US_ITS ---
CLINICAL HISTORY: 12 wks gestation, vag bleeding, abd pain US OB 1st trimester transabdominal Comparison: US - US OB <= 14 WEEKS FETUS - 03/26/24 18:22 EST Findings: Single intrauterine . CRL: 5.6 cm. EGA: 12 weeks 2 days. KIM: 11/06/2024. Previously established gestational age: 12 weeks 1 day. Normal yolk sac . Cardiac activity: 176 bpm. No subchorionic bleed. Left ovary measures 2.8 x 1.8 x 1.5 cm and is within normal limits. Right ovary is not seen. IMPRESSION: Single intrauterine estimated 12 weeks 2 days gestational age by today's ultrasound criteria. No acute findings. This document has been electronically signed by: Mario Brennan MD on 04/25/2024 17:29:22
[2024-04-25 12:28] VITALS: BP 132/80; PULSE 120; RESP 18; TEMP 37.6; O2SAT 100; BMI 31.1
--- NOTE | 2024-04-25 12:28 | ED_ITS ---
HPI - General Chief complaint: Vaginal Bleeding Stated complaint: 12wks spotting,vomiting Time Seen by Provider: 04/25/24 21:32 Source: patient Mode of arrival: ambulatory Limitations: no limitations History of Present Illness ED Provider: HPI Narrative: Patient has been having cold symptoms since yesterday and vaginal bleeding started earlier today yesterday is 12 weeks uncomplicated now [place] [facility] Patient's daughter was positive for influenza B last week Vaginal bleeding: light Patient : No Related Data Previous Rx's ?Medication ?Instructions ?Recorded ondansetron 4 mg disintegrating 4 mg PO DAILY PRN nausea and 12/29/22 tablet vomiting 5 days #10 tabs cephalexin 500 mg capsule 500 mg PO QID 7 days #28 caps 03/04/24 metronidazole 500 mg tablet 500 mg PO BID #13 tabs 03/26/24 ondansetron 4 mg disintegrating 4 mg PO Q6-8H PRN nausea and 04/25/24 tablet vomiting #15 tabs oseltamivir 75 mg capsule (Tamiflu) 75 mg PO BID 5 days #10 caps 04/25/24 Allergies Allergy/AdvReac Type Severity Reaction Status Date / Time No Known Allergies Allergy Verified 04/25/24 12:31 Review of Systems 2 Review of Systems: Yes all other systems are reviewed and are negative PMFSH Social History Social History Alcohol intake: never Advance Directives: No Advance Directives Information Provided: No Physical Exam 2 Vital Signs: Vital Signs: Last Vital Signs Temp 100.2 F 04/25/24 21:03 Pulse 112 H 04/25/24 21:03 Resp 16 04/25/24 21:03 BP 106/68 04/25/24 21:03 Pulse Ox 100 04/25/24 21:03 O2 Del Method Room Air 04/25/24 21:03 BMI result Body Mass Index 31.1 Appearance: Alert. Oriented X3. No acute distress. Eyes: PERRLA, No Nystagmus ENT: Pharynx normal. Oral Mucosa moist Neck: Normal inspection. Neck supple. CVS: Normal heart rate and rhythm. Pulses normal. Respiratory: No respiratory distress. Equal air entry bilateral, no wheezing/rales/rhonchi Abdomen: Soft and nontender. Bowel sounds are present, no mass palpable, no CVA tenderness Skin: Skin warm and dry. Normal skin color. Normal skin turgor. Extremities: No lower extremity edema. No calf tenderness Neuro: Oriented X 3. No motor deficit. No sensory deficit.No cerebellar signs , cranial nerves II-XII intact Course Course Course Narrative: This is a Rapid Medical Exam performed in triage by Akosua Dc PA-C. Full HPI, ROS and PE to be performed by primary ED provider. 38yo F @12 wks gestation presenting to the ED c/o lower abdominal pain, TENA, N/V, & vaginal bleeding x yesterday. Bright red yesterday, brown blood today. PE: abdomen soft w/lower ttp, no rebound or guarding Plan: labs, UA, US Medications Administered Discontinued Medications Generic Name Dose Route Start Last Admin Trade Name Freq PRN Reason Stop Dose Admin Acetaminophen 975 mg 04/25/24 21:05 04/25/24 21:16 Acetaminophen 325 Mg Tablet PO 04/25/24 21:06 975 mg ONCE ONE Administration Medical Decision Making Medical Decision Making [facility] Narrative: Patient is 12 weeks with vaginal bleed just spotting with cold symptoms no blood clots passing vitals stable stable and ultrasound of the pelvis showed demonstrated IUP with no active bleeding Lab Data MDM Lab Attestation statement: I reviewed the patient's lab results. 04/25/24 12:42 04/25/24 12:42 Labs: Lab Results 04/25/24 04/25/24 Range/Units 12:42 20:54 WBC 8.2 (4.8-10.8) X10*3/uL RBC 4.48 (4.20-5.50) X10*6/uL Hgb 12.1 (12.0-16.0) g/dl Hct 36.3 L (37.0-47.0) % MCV 81.0 (80.0-98.0) fL MCH 27.0 (27.0-33.0) pg MCHC 33.3 (31.0-35.0) g/dl RDW 12.6 (11.0-16.0) % Plt Count 284 (160-400) X10*3/uL MPV 9.0 L (9.4-12.3) fL Immature Gran % (Auto) 0.6 H (0.0-0.4) % Neut % (Auto) 84.8 H (45-73) % Lymph % (Auto) 6.0 L (20-40) % [place] % (Auto) 7.8 (2-11) % Eos % (Auto) 0.4 (0-4) % Baso % (Auto) 0.4 (0-2) % Lymph # (Auto) 0.5 L (1.2-4.9) X10*3/uL [place] # (Auto) 0.6 (0.1-1.2) X10*3/uL Eos # (Auto) 0.0 (0.0-0.4) X10*3/uL Baso # (Auto) 0.0 (0.0-0.2) X10*3/uL Abs Immat Gran (auto) 0.05 H (0.00-0.03) X10*3/uL Absolute Neuts (auto) 7.0 (2.0-8.3) x10*3/uL Absolute Nucleated RBC 0.000 (0.0-0.012) X10*3/uL Nucleated RBC % (auto) 0.0 (0.0-0.2) /100WBC PT 12.5 H (10.9-12.4) SEC INR 1.1 (0.9-1.1) Sodium 135 (135-145) mmol/L Potassium 3.3 (3.3-5.1) mmol/L Chloride 104 (96-108) mmol/L Carbon Dioxide 21 L (22-29) mmol/L Anion Gap 13 (12-20) BUN 5 L (9-16) mg/dL Creatinine 0.56 (0.5-1.4) mg/dL Estim Creat Clear Calc 122.1 Estimated GFR > 60 Random Glucose 103 (60-115) mg/dL Calcium 8.9 (8.4-10.2) mg/dL Magnesium 1.8 (1.6-2.6) mg/dL Total Bilirubin 0.2 (0.0-1.0) mg/dL Direct Bilirubin < 0.2 (0.0-0.5) mg/dL AST 22 (5-31) U/L ALT 16 (0-31) U/L Alkaline Phosphatase 74 (39-117) U/L Total Protein 7.4 (6.5-8.0) g/dL Albumin 3.8 (3.5-5.0) g/dL Lipase 11 (8-78) U/L Beta HCG, Quant 11085 mIU/mL Urine Color Yellow Urine Appearance Clear Urine pH 5.5 (5.0-9.0) Ur Specific [place] >= 1.030 H (1.005-1.025) Urine Protein Negative (Neg-Trace) mg/dL Urine Glucose (UA) Negative (Negative) mg/dL Urine Ketones 40 (Negative) mg/dL Urine Blood Negative (Negative) Urine Nitrite Negative (Negative) Ur Leukocyte Esterase Negative (Negative) Influenza Type A (PCR) NEGATIVE (Negative) Influenza Type B (PCR) POSITIVE A (Negative) RSV RNA Qual (PCR) NEGATIVE (Negative) SARS-CoV-2 RNA (RT-PCR) NEGATIVE (Negative) S. pyogenes GrpA LIZETH Negative (Negative) Blood Type O Positive Discharge Plan Discharge Clinical Impression: Vaginal bleeding in patient after first trimester Patient Disposition: Home, Self-Care Instructions: Threatened Miscarriage (ED), Influenza (ED) Additional Instructions: Rest follow up with your Ob G if bleeding continues At this time your ultrasound is normal Also your positive for influenza B Drink plenty of fluids Tamiflu for flu Prescriptions: New oseltamivir [Tamiflu] 75 mg capsule 75 mg PO BID 5 Days Qty: 10 0RF ondansetron 4 mg tablet,disintegrating 4 mg PO Q6-8H PRN (Reason: nausea and vomiting) Qty: 15 0RF No Action ondansetron 4 mg tablet,disintegrating 4 mg PO DAILY PRN (Reason: nausea and vomiting) 5 Days Qty: 10 0RF cephalexin 500 mg capsule 500 mg PO QID 7 Days Qty: 28 0RF metronidazole 500 mg tablet 500 mg PO BID Qty: 13 0RF Print Language: French
[2024-04-25 12:49] LABS: MANUAL DIFF FLAG NO
[2024-04-25 12:52] LABS: Appearance Urine Clear; Basophils Percent Auto 0.4 % (0-2); Color Urine Yellow; Eosinophils Percent Auto 0.4 % (0-4); Glucose Urine UA Negative (Negative); Hematocrit 36.3 % (37.0-47.0); Hemoglobin 12.1 g/dl (12.0-16.0); Imm Gran Abs Auto 0.05 X10*3/uL (0.00-0.03); Imm Gran Pct Auto 0.6 % (0.0-0.4); Leukocyte Esterase Urine Negative (Negative); Lymphocytes Absolute Auto 0.5 X10*3/uL (1.2-4.9); Mean Corpuscular HGB Conc 33.3 g/dl (31.0-35.0); Monocytes Absolute Auto 0.6 X10*3/uL (0.1-1.2); Monocytes Percent Auto 7.8 % (2-11); Neutrophils Percent Auto 84.8 % (45-73); Nitrite Urine Negative (Negative); PH 5.5 (5.0-9.0); Platelet Count 284 X10*3/uL (160-400); Red Blood Count 4.48 X10*6/uL (4.20-5.50); Red Cell Distribution Width 12.6 % (11.0-16.0); Specific Gravity - Urine >= 1.030 (1.005-1.025); Urine Blood Negative (Negative); Urine Ketones 40 mg/dL (Negative); Urine Protein Negative (Neg-Trace); White Blood Count 8.2 X10*3/uL (4.8-10.8)
[2024-04-25 12:55] LABS: INTERNATIONAL NORM RATIO 1.1 (0.9-1.1); Prothrombin Time 12.5 SEC (10.9-12.4)
[2024-04-25 13:12] LABS: Alanine Aminotransferase 16 U/L (0-31); Albumin Level 3.8 g/dL (3.5-5.0); Alkaline Phosphatase 74 U/L (39-117); Anion Gap 13 (12-20); Aspartate Amino Transferase 22 U/L (5-31); Bilirubin Direct < 0.2 mg/dL (0.0-0.5); Bilirubin Total 0.2 mg/dL (0.0-1.0); Blood Urea Nitrogen 5 mg/dL (9-16); Calcium 8.9 mg/dL (8.4-10.2); Carbon Dioxide 21 mmol/L (22-29); Chloride 104 mmol/L (96-108); Creatinine Clr Calc Pharmacy 122.1; Estimated Glomerular Filt Rate > 60; Glucose Random 103 mg/dL (60-115); Lipase 11 U/L (8-78); Magnesium 1.8 mg/dL (1.6-2.6); Potassium 3.3 mmol/L (3.3-5.1); Sodium 135 mmol/L (135-145); Total Protein 7.4 g/dL (6.5-8.0)
[2024-04-25 13:56] LABS: HCG Quantitative 36797 mIU/mL
[2024-04-25 21:03] VITALS: BP 106/68; PULSE 112; RESP 16; TEMP 37.9; O2SAT 100
[2024-04-25 21:08] LABS: IDNOW Serial# 6674DD1D; Strep A Nucleic Acid Negative (Negative)
[2024-04-25] MEDS: Acetaminophen 325 MG TABLET 975 MG PO (21:16)
--- NOTE | 2024-04-25 21:19 | PC.NURSE ---
pt reports 12/17 TENA and temp 100.2F. MD Mckeon made aware, verbal order for 975mg PO tylenol. pt medicated per may. pending viral swabs.
[2024-04-25 21:38] LABS: Influenza A PCR NEGATIVE (Negative); Influenza B PCR POSITIVE (Negative); Resp Syncy Virus RNA Qual PCR NEGATIVE (Negative); SARS COV2 PCR INHOUSE NEGATIVE (Negative)
[2024-04-25 22:30] VITALS: BP 106/68; PULSE 98; RESP 16; TEMP 36.9; O2SAT 100
[2024-04-25] MEDS: Ondansetron ODT 4 MG TAB.RAPDIS TRANSLINGU (22:33)
[2024-04-25] MEDS: Oseltamivir Phosphate 75 MG CAPSULE PO (22:33)
== END 2024-04-25 22:50 | disposition home or self-care (01) ==
PROVIDERS: Physician Assistant; Emergency Provider Internal Medicine; PCP Internal Medicine
DX: O20.9 Hemorrhage in early pregnancy, unspecified (principal); Z3A.12 12 weeks gestation of pregnancy; Z79.899 Other long term (current) drug therapy; Z03.818 Encounter for observation for suspected exposure to other biological agents ruled out
CPT/HCPCS: 0241U; 36415; 76801; 80048; 80076; 81003; 83690; 83735; 84702; 85025; 85610; 86900; 86901; 87651; 99284